=== PATIENT | male | born 1935 | race Caucasian/White ===

== ENCOUNTER 2016-10-27 08:57 | Observation (INO) ==
[2016-10-27] MEDS ORDERED: 0.9 % Sodium Chloride 500 ML IVC ONE (09:04)
[2016-10-27] MEDS ORDERED: Aspirin 81 MG TAB.CHEW PO ONE (09:04)
[2016-10-27] MEDS: Nitroglycerin 0.4 MG TAB.SUBL SL ONE ×2 (09:11→10:09)
--- NOTE | 2016-10-27 09:12 | Emergency Department Note ---
Disposition Clinical Impression: Chest pain Disposition: Admitted As Inpatient Condition: Fair Referrals: NO,PCP [Non-Partnered Physician] - Forms: ED Satisfaction Letter Time of Disposition: 11:16 Chest Pain HPI - General Chief Complaint: ED Chest Pain Stated Complaint: Chest Pain Time Seen by Provider: 10/27/16 09:04 Source: patient, family Mode of arrival: wheelchair Limitations: no limitations Vital Signs Reviewed: Yes Nursing Notes Reviewed: Yes - History of Present Illness HPI Narrative: Patient presents to the ED with the chief complaint of chest pain. Patient states that he has had multiple CABG surgeries, with his last in 2014. He is also had stents and takes aspirin and Plavix daily. His states that she is very concerned because this morning the patient became diaphoretic and slightly nauseated and was complaining of left-sided chest pain that was radiating into her shoulder and down his arm. She states that he finally told her today that he has been having this pain off and on for the last 3 days. Patient states that it started in his left neck and his left trapezius and in his left shoulder. He states that this was his anginal equivalent to his second heart attack. He states that it went away on its own, so he did not think anything of it. He woke up this morning and felt very ill and decided that it was time to come to the hospital. He has no history of DVT or PE. 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 Otherwise, he denies any fever, chills, abdominal pain, vomiting, diarrhea, cough. Severity scale (1-10): 6 - Related Data Home Medications Medication Instructions Recorded Confirmed Aspirin 81 mg PO DAILY 04/24/16 04/24/16 Clopidogrel [Plavix] 75 mg PO DAILY 04/24/16 04/24/16 Cyanocobalamin (B-12) [Vitamin B12] 1,000 mcg SQ QMONTH 04/24/16 04/24/16 Fluticasone/Salmeterol [Advair 1 puff IH DAILY 04/24/16 04/24/16 100-50 Diskus] Glucosamine Sulfate Dipot Chlr 500 mg PO DAILY 04/24/16 04/24/16 [Glucosamine] Levothyroxine Sodium [Synthroid] 100 mg PO DAILY 04/24/16 04/24/16 Montelukast [Singulair] 10 mg PO DAILY 04/24/16 04/24/16 Nitroglycerin [Nitrostat] 0.4 mg SL Q5M PRN 04/24/16 04/24/16 Pravastatin Sodium 40 mg PO DAILY 04/24/16 04/24/16 Previous Rx's Medication Instructions Recorded Acetaminophen [Tylenol] 650 mg PO Q6HR PRN #20 tablet 04/27/16 Cephalexin [Keflex] 500 mg PO QID 4 Days 04/27/16 Tamsulosin [Flomax] 0.4 mg PO DAILY 14 Days 04/27/16 Allergies Allergy/AdvReac Type Severity Reaction Status Date / Time rosuvastatin [From Crestor] Allergy Seizure Verified 04/24/16 12:36 All systems ED: reviewed and negative except as stated. Constitutional: Reports: other (Diaphoresis) Cardiovascular: Reports: chest pain, dyspnea on exertion, edema Gastrointestinal: Reports: nausea Musculoskeletal: Reports: as per HPI, neck pain Neurological: Reports: headache (States left-sided due to his neck pain) Chest Pain PMH - Past Medical History Medical history: Reports: myocardial infarction Psychiatric history: Reports: no psych history - Social History Smoking Status: Never smoker Alcohol use: Reports: none Drug use: Reports: none Physical Exam - General Limitations: no limitations General appearance: alert, in no apparent distress - Head Head exam: atraumatic, normocephalic, normal inspection - Eye Eye exam: Present: normal appearance, PERRL, EOMI - ENT ENT exam: normal exam, normal oropharynx, mucous membranes moist - Neck Neck exam: Present: full ROM, tenderness (Has reproducible tenderness in his left paracervical musculature.). Absent: meningismus - Chest Chest inspection: Present: normal inspection, symmetric chest wall rise, other ( Previous open chest scar ) - Respiratory Respiratory exam: Present: normal lung sounds bilaterally. Absent: respiratory distress - Cardiovascular Cardiovascular exam: Present: regular rate, normal rhythm, normal heart sounds - Abdominal Exam Abdominal exam: Present: soft, Non-Tender. Absent: tenderness, distention, guarding, rebound, rigidity - Extremities Exam Extremities exam: Present: pedal edema (Patient has mild 1+ pitting edema bilaterally. His extremities are cool and pale, but states this is his baseline since the vein harvesting ) - Expanded Lower Extremity Exam Hip/Pelvis exam: Present: pelvis stable - Neurological Exam Neurological exam: Present: alert, oriented X3, CN II-XII intact, other ( Patient complains of some subjective weakness in his left upper extremity, but his strength is normal. His gait is also normal. He is able to ambulate to the bed with no assistance. ) - Psychiatric Psychiatric exam: Present: normal affect, normal mood - Skin Skin exam: Present: warm, dry, intact, normal color Course - Reevaluation(s) Reevaluation #1: Patient's CT scans were normal. His chest pain did slightly improve with nitroglycerin. The patient seemed to think the most of this is coming from a shoulder but his is concerned that this was the same way he presented last time for his heart. We did discuss how the patient felt and he states that he would feel more comfortable in the hospital for a period of observation. Vital Signs Temperature 98.1 F 10/27/16 09:01 Pulse Rate 63 10/27/16 09:01 Respiratory Rate 18 10/27/16 09:01 Blood Pressure 122/58 10/27/16 09:01 O2 Sat by Pulse Oximetry 97 10/27/16 09:01 Temperature 98.1 F 10/27/16 09:01 Pulse Rate 60 10/27/16 11:07 Respiratory Rate 18 10/27/16 11:07 Blood Pressure 100/59 10/27/16 11:07 O2 Sat by Pulse Oximetry 99 10/27/16 11:07 Oxygen Delivery Oxygen Delivery Nasal Cannula Chest Pain - Medical Records Medical records reviewed: Yes I reviewed the patient's medical records. - Lab Data Lab results reviewed: Yes I reviewed the patient's lab results. Result diagrams: 10/27/16 09:14 10/27/16 09:14 Lab Results 10/27/16 10/27/16 10/27/16 Range/Units 09:14 09:14 09:14 WBC 3.4 L (4.3-11.1) K/mcL RBC 4.61 (4.19-5.50) M/mcL Hgb 13.1 (12.9-16.9) g/dL Hct 40.2 (37.5-50.1) % MCV 87.2 (83.0-100.0) fL MCH 28.4 (28.0-33.3) pg MCHC 32.6 (31.6-35.5) g/dL RDW 16.5 H (11.5-14.5) % Plt Count 203 (140-400) K/mcL MPV 10.1 (9.4-12.4) fL Immature Gran % 0.9 (0-4) % Seg Neutrophils % 43.1 % Lymphocytes % 29.4 % Monocytes % 24.8 % Eosinophils % 1.2 % Basophils % 0.6 % Neutrophils # 1.5 L (1.6-8.9) K/mcL Lymphocytes # 1.0 (0.6-4.6) K/mcL Monocytes # 0.8 (0.0-1.3) K/mcL Eosinophils # 0.0 (0.0-0.6) K/mcL Basophils # 0.0 (0.0-0.2) K/mcL Platelet Estimate Normal (Normal) Immature Plt Fraction 7.1 H (1.1-6.1) % Anisocytosis 1+ A (Not Present) PT 12.3 H (9.4-12.1) Seconds INR 1.1 APTT 31.5 (26.0-36.0) Seconds Sodium (136-145) mEq/L Potassium (3.5-4.5) mEq/L Chloride (98-109) mEq/L Carbon Dioxide (19-29) mEq/L BUN (8-26) mg/dL Creatinine (0.72-1.25) mg/dL Est GFR ( Amer) (> 60) Est GFR (Non-Af Amer) (> 60) BUN/Creatinine Ratio (6-26) Glucose (70-99) mg/dL Calculated Osmolality (280-300) Calcium (8.6-10.8) mg/dL Troponin I (0-0.03) ng/mL B-Natriuretic Peptide 41 (0-100) pg/mL 10/27/16 10/27/16 Range/Units 09:14 09:14 WBC (4.3-11.1) K/mcL RBC (4.19-5.50) M/mcL Hgb (12.9-16.9) g/dL Hct (37.5-50.1) % MCV (83.0-100.0) fL MCH (28.0-33.3) pg MCHC (31.6-35.5) g/dL RDW (11.5-14.5) % Plt Count (140-400) K/mcL MPV (9.4-12.4) fL Immature Gran % (0-4) % Seg Neutrophils % % Lymphocytes % % Monocytes % % Eosinophils % % Basophils % % Neutrophils # (1.6-8.9) K/mcL Lymphocytes # (0.6-4.6) K/mcL Monocytes # (0.0-1.3) K/mcL Eosinophils # (0.0-0.6) K/mcL Basophils # (0.0-0.2) K/mcL Platelet Estimate (Normal) Immature Plt Fraction (1.1-6.1) % Anisocytosis (Not Present) PT (9.4-12.1) Seconds INR APTT (26.0-36.0) Seconds Sodium 142 (136-145) mEq/L Potassium 3.9 (3.5-4.5) mEq/L Chloride 106 (98-109) mEq/L Carbon Dioxide 29 (19-29) mEq/L BUN 20 (8-26) mg/dL Creatinine 0.77 (0.72-1.25) mg/dL Est GFR ( Amer) > 60 (> 60) Est GFR (Non-Af Amer) > 60 (> 60) BUN/Creatinine Ratio 26 (6-26) Glucose 107 H (70-99) mg/dL Calculated Osmolality 297 (280-300) Calcium 9.7 (8.6-10.8) mg/dL Troponin I 0.00 (0-0.03) ng/mL B-Natriuretic Peptide (0-100) pg/mL - Radiology Data Radiology results reviewed: Yes I reviewed the patient's radiology results. - EKG Data EKG attestation: Yes I reviewed and interpreted this EKG. EKG results narrative: Sinus rhythm , rate 62, AL interval 153, QRS 101, QTc 395, normal axis, nonspecific ST-T wave changes inferiorly, no previous available at this time, otherwise no acute changes Heart Score - Score History: Slightly Suspicious EKG: Non Specific repolarisation Disturbance Age: Greater than 65 Risk Factors: Equal/Greater than 3 risk factor or history of atherosclerotic disease Troponin: Less than normal limit HEART Score Total: 5 S.B.A.R. - S.B.A.R. Situation: Demographics, MOA Background: Presenting Complaint, Relevant PMH, Meds, & Allergies Assessment: Vital Signs, Course and respsone to treatment, Exam Concerns, Patient/Family Expectation, Pertinant Lab Results, Outstanding Labs Recommendation: Recommendation based on pending studies, treatments, or consults Ishaan Report Given to: Dr. Azevedo for admission Ishaan Repor Time: 11:16 Attestation Statement - Attestation Attestation: Patient was seen with resident physician. I reviewed the history, physical, assessment and plan, and agree with the findings. I also personally evaluated this patient and had [id number] time with this patient. 81-year-old male presents to the emergency Department chief complaint of chest and neck pain. Patient states that he has had bypass surgery and multiple stenting in the past. He says this is somewhat of an anginal equivalent insofar as he has had a sensation that his heart is beating harder than usual, he has some shortness of breath, and he has some discomfort that radiates into his neck and into his left arm. All of these at various times have been anginal covens for him in the past. He said the episodes come and go have been getting progressively worse for the last 24-48 hours which ultimately prompted his visit. He also states that he had some nausea and diaphoresis earlier this morning. He denies fevers or chills. On examination ENT is unremarkable. Vital signs are stable, heart and lungs are both normal. Abdomen is soft and nontender. Extremities unremarkable. Neurologically patient is intact. We will did do a cardiac workup, and likely admitted to the hospital for additional evaluation and treatment. Patient was given nitroglycerin. Patient's EKG shows no acute ischemic changes. I agree with resident physician assessment and plan.
[2016-10-27 09:19] LABS: Basophils % 0.6 %; Eosinophils % 1.2 %; Hematocrit 40.2 % (37.5-50.1); Hemoglobin 13.1 g/dL (12.9-16.9); Immature Granulocytes % 0.9 % (0-4); Immature Platelets 7.1 % (1.1-6.1); Lymphocytes % 29.4 %; Mean Corpuscular HGB Conc 32.6 g/dL (31.6-35.5); Mean Corpuscular Hemoglobin 28.4 pg (28.0-33.3); Mean Corpuscular Volume 87.2 fL (83.0-100.0); Mean Platelet Volume 10.1 fL (9.4-12.4); Monocytes % 24.8 %; Neutrophils # 1.5 K/mcL (1.6-8.9); Platelet Count 203 K/mcL (140-400); Red Blood Count 4.61 M/mcL (4.19-5.50); Red Cell Distribution Width 16.5 % (11.5-14.5); Segmented Neutrophils % 43.1 %
[2016-10-27 09:22] LABS: Monocytes # 0.8 K/mcL (0.0-1.3)
[2016-10-27 09:23] LABS: INR 1.1; Prothrombin Time 12.3 Seconds (9.4-12.1)
[2016-10-27 09:25] LABS: Activated Partial Thrombo Time 31.5 Seconds (26.0-36.0)
[2016-10-27 09:30] LABS: BUN/Creatinine Ratio 26 (6-26); Blood Urea Nitrogen 20 mg/dL (8-26); Calcium 9.7 mg/dL (8.6-10.8); Carbon Dioxide 29 mEq/L (19-29); Chloride 106 mEq/L (98-109); Glucose 107 mg/dL (70-99); Osmolality,Calculated 297 (280-300); Potassium 3.9 mEq/L (3.5-4.5); Sodium 142 mEq/L (136-145); eGFR For African Americans > 60 (> 60); eGFR For Non-African Americans > 60 (> 60)
[2016-10-27 09:51] LABS: Platelet Estimate Normal (Normal)
[2016-10-27 09:53] LABS: Anisocytosis 1+ (Not Present)
[2016-10-27] MEDS ORDERED: *HR* HYDROmorphone (PF) 1 MG/ML SYRINGE IVP ONE (10:38)
[2016-10-27] MEDS ORDERED: Acetaminophen 325 MG TABLET PO PRN (11:23)
[2016-10-27] MEDS ORDERED: Naloxone 0.4 MG/ML INJ IVP PRN (11:23)
[2016-10-27] MEDS ORDERED: Ondansetron 4 MG/2 ML VIAL IVP PRN (11:23)
[2016-10-27] MEDS ORDERED: Nitroglycerin 0.4 MG TAB.SUBL SL PRN (11:26)
--- NOTE | 2016-10-27 11:39 | Event Note ---
Date of Encounter: 10/27/16 Time of Encounter: 11:37 1. chest pain with hx of CABG stress test in the morning continue ASA and Plavix 2. Bradycardia no betablockers 3. left side numbness may order MRI of the brain and neck 4. Parkinson stable admit for observation time spent 40 min Note to follow by NIKITA Barnes
--- NOTE | 2016-10-27 12:04 | Internal Med History&Physical ---
Date of Encounter: 10/27/16 Time of Encounter: 11:52 Assessment and Plan (1) Chest pain Current visit: Yes Status: Acute 1 patient's been expressing increasing shortness of breath diaphoresis and rapid heartbeat which she states was anginal equivalent to his last heart attack. first cardiac troponins were negative. Patient has extensive cardiac history with a CABG in 1994 and redo 2005 cardiac catheter 2012 showed severe three-vessel coronary disease Continue cycle troponins 2 continuous cardiac monitoring 3 nitroglycerin as needed for chest pain 4 patient had a cardiac echo April 2016 which did show EF of 60% 5 continued with aspirin and statin patient has bradycardia no beta blockers at this time 6 we will make patient nothing by mouth after midnight for pharm stress in am 7 oxygen as needed to maintain SPO2 greater than 92% Qualifiers: Chest pain type: other chest pain Qualified Code(s): R07.89 - Other chest pain; R07.8 - Other chest pain (2) Hypothyroid Current visit: Yes Status: Acute 1check tsh 2 synthroid Qualifiers: Hypothyroidism type: unspecified Qualified Code(s): E03.9 - Hypothyroidism , unspecified (3) Parkinson disease Current visit: No Status: Chronic 1 stable (4) CAD (coronary artery disease), [place] coronary artery Current visit: No Status: Chronic 1 continue with aspirin and Plavix statin 2 continues cardiac monitoring 3 cardiac diet Qualifiers: [place] vs. transplanted heart: [place] heart Associated angina: with unspecified angina Qualified Code(s): I25.119 - Atherosclerotic heart disease of [place] coronary artery with unspecified angina pectoris (5) Fall Current visit: Yes Status: Acute 1 patient had a fall from standing approximately 1 week ago. Complaining of left shoulder pain and neck pain and headaches. CT of head and shoulder are negative for any fractures or intracranial bleeding. We will obtain MRI of his head as well as neck 2 place on fall precautions Qualifiers: Encounter type: initial encounter Qualified Code(s): W19.XXXA - Unspecified fall, initial encounter (6) DVT prophylaxis Current visit: Yes Status: Acute 1[facility] Internal Medicine - H&P: HPI Chief complaint: SOB,CP Admitted From: Emergency Dept Plans for Post Hospital Care: Home History of present illness: Mr. Kinsey is a 81 year old male with a past medical hx of CAD with CABG 1994 redo 2004 hypothyroid chronic bradycardia hyperlipidemia hypertension Parkinson' s disease. According to patient he states he had a fall approximately 1 week ago, falling onto his left side he has been experiencing some left shoulder plain as well as left-sided neck pain. For past 2 days patient has been experiencing shortness of breath, felt as if his heart was racing and diaphoretic while going up and down stairs. He states that was his anginal equivalent to a second heart attack. This resolved on its own however he did have a second episode this morning which she became concerned and came to the ER for evaluation. He denies any past history of DVT or PE. He does have chronic edema in his lower extremities secondary to previous vein harvesting. He denies any fevers chills vomiting diarrhea or cough. He does complain of left shoulder, neck pain and headache. According ER records lab work was unremarkable troponin 0.0. CT of shoulder and head were negative for any fractures or intracranial abnormalities. Chest x-ray no acute process EKG with no ST-T wave abnormalities he has been admitted for further workup and evaluation. Presently patient denies any chest pain or shortness of breath however he does complain of headache and left neck pain. Presently sinus bradycardia on the monitor heart sounds S1-S2 with no rubs clicks gallops murmurs noted. Lung sounds are clear throughout. I reviewed this case with Dr. Azevedo who agrees with plan. Past Med Surg Social Fam HX - Past Medical History Medical history: myocardial infarction Psychiatric history: no psych history - Social History Smoking Status: Never smoker Smokeless Tobacco Status: No Alcohol use: none Drug use: none - Family History Mother Hx Family Cardiac Disorders: Yes (CABG) Internal Medicine - H&P: Meds Aspirin 81 mg PO DAILY 04/24/16 [History] Clopidogrel [Plavix] 75 mg PO DAILY 04/24/16 [History] Cyanocobalamin (B-12) [Vitamin B12] 1,000 mcg SQ QMONTH 04/24/16 [History] Fluticasone/Salmeterol [Advair 100-50 Diskus] 1 puff IH DAILY 04/24/16 [History] Glucosamine Sulfate Dipot Chlr [Glucosamine] 500 mg PO DAILY 04/24/16 [History] Montelukast [Singulair] 10 mg PO DAILY 04/24/16 [History] Nitroglycerin [Nitrostat] 0.4 mg SL Q5M PRN 04/24/16 [History] Pravastatin Sodium 40 mg PO DAILY 04/24/16 [History] Acetaminophen [Tylenol] 650 mg PO Q6HR PRN #20 tablet 04/27/16 [Rx] Tamsulosin [Flomax] 0.4 mg PO DAILY 14 Days 04/27/16 [Rx] Levothyroxine [Synthroid] 88 mcg PO DAILY 10/27/16 [History] Allergies onabotulinumtoxinA [From Botox] Allergy (Verified 10/27/16 11:23) Weakness rosuvastatin [From Crestor] Allergy (Verified 10/27/16 11:23) Weakness Patient experienced weakness to the point of being hopsitalized- All Systems PM: A 10-system review of systems was performed and is negative for pertinent findings except as documented above in the HPI. - Constitutional Constitutional: falls - Cardiovascular Cardiovascular ROS IM: dyspnea, dyspnea on exertion, edema - Respiratory Respiratory: dyspnea on exertion - Gastrointestinal Gastrointestinal: no abdominal pain, no diarrhea, no hematemesis, no hematochezia, no melena, no nausea, no vomiting - Musculoskeletal Musculoskeletal ROS IM: arthralgias, neck pain - Integumentary Integumentary IM: no rash, no unusual bruising - Neurological Neurological ROS: headache(s), no confusion, no convulsions, no focal weakness, no numbness, no tingling, no tremor(s) - Hematologic/Lymphatic Hematologic/Lymphatic: no easy bruising - Constitutional Vitals: Temp Pulse Resp BP Pulse Ox 98.1 F 60 18 100/59 99 10/27/16 09:01 10/27/16 11:07 10/27/16 11:26 10/27/16 11:26 10/27/16 11:07 General appearance: Present: A&O X 3, answers questions appropriately - Head Head exam: Present: atraumatic, normocephalic - Eye Eye exam: Present: PERRL, conjuntiva pink, sclera anicteric Pupils: Present: PERRL - Neck Neck exam general surgery: Present: supple, trachea midline. Absent: lymphadenopathy - Respiratory Respiratory exam: Present: CTAB. Absent: accessory muscle use, rales, rhonchi, wheezes - Cardiovascular Cardiovascular exam: Present: RRR, +S1, +S2. Absent: diastolic murmur, gallop, rubs, systolic murmur - GI/Abdominal GI/Abdominal exam: Present: normal bowel sounds, soft, no peritoneal signs. Absent: distended, tenderness - Extremities Exam Extremities exam: Present: pedal edema, warm, radial pulses palpable and symetrical. Absent: calf tenderness, cyanotic - Neurological Exam Neurological exam: Present: CN II-XII intact, oriented X3, no focal deficits. Absent: pronater drift, facial droop, speech deficit - Skin Skin exam: Present: dry, intact Internal Med - H&P Results - Labs CBC & Chem 7: 10/27/16 09:14 10/27/16 09:14 - EKG Data EKG shows normal: sinus rhythm - Diagnostic Studies Chest x-ray Additional comments: Chest X-Ray 10/27/16 09:04 IMPRESSION: No acute cardiopulmonary disease. D/ /27/2016 10:12:40 Ben Dotson MD / inés Interpreting Provider: Ben Dotson MD Head CT 10/27/16 09:34 IMPRESSION: No acute intracranial abnormality. D/ / 10/27/2016 10:31:22 Ben Dotson MD / inés Interpreting Provider: Ben Dotson MD Cervical Spine CT 10/27/16 09:42 IMPRESSION: No acute abnormality of the cervical spine. D/ / 10/27/2016 10:35:52 Ben Dotson MD / inés Interpreting Provider: Ben Dotson MD Shoulder CT 10/27/16 09:42 IMPRESSION: No acute osseous injury of the left shoulder. Arthritic changes are present. D/ / 10/27/2016 10:37:23 Ben Dotson MD / inés Interpreting Provider: Ben Dotson MD
[2016-10-27] MEDS: *HR* HYDROcodone/Acet 5/325 mg TABLET PO PRN (18:20)
[2016-10-27 20:51] LABS: Bilirubin,Urine Negative (Negative); Blood,Urine Negative (Negative); Clarity,Urine Clear (Clear); Color,Urine Yellow (Yellow); Glucose,Urine (UA) 100 mg/dL (Normal); Ketones,Urine Negative (Negative); Leukocyte Esterase,Urine Negative (Negative); Nitrite,Urine Negative (Negative); PH,Urine 5.5 pH Units (5.0-8.0); Protein,Urine Negative (Neg-Trace); Specific Gravity,Urine > 1.030 (1.010-1.025); Urobilinogen,Urine Normal (Normal)
[2016-10-28] MEDS: *HR* HYDROcodone/Acet 5/325 mg TABLET PO PRN ×3 (00:54→19:47)
[2016-10-28 04:01] LABS: Basophils % 0.6 %; Eosinophils # 0.1 K/mcL (0.0-0.6); Eosinophils % 1.8 %; Hematocrit 35.4 % (37.5-50.1); Immature Granulocytes % 0.6 % (0-4); Lymphocytes # 1.2 K/mcL (0.6-4.6); Lymphocytes % 36.5 %; Mean Corpuscular HGB Conc 32.2 g/dL (31.6-35.5); Mean Corpuscular Hemoglobin 28.6 pg (28.0-33.3); Mean Corpuscular Volume 88.9 fL (83.0-100.0); Mean Platelet Volume 10.4 fL (9.4-12.4); Monocytes # 0.9 K/mcL (0.0-1.3); Monocytes % 26.2 %; Neutrophils # 1.2 K/mcL (1.6-8.9); Platelet Count 172 K/mcL (140-400); Red Blood Count 3.98 M/mcL (4.19-5.50); Red Cell Distribution Width 16.3 % (11.5-14.5); Segmented Neutrophils % 34.3 %
[2016-10-28 04:03] LABS: Hemoglobin 11.4 g/dL (12.9-16.9)
[2016-10-28 04:18] LABS: Anisocytosis 1+ (Not Present)
[2016-10-28 04:19] LABS: BUN/Creatinine Ratio 27 (6-26); Blood Urea Nitrogen 20 mg/dL (8-26); Calcium 8.7 mg/dL (8.6-10.8); Carbon Dioxide 28 mEq/L (19-29); Chloride 107 mEq/L (98-109); Chol/HDL Ratio 4.8 (0-4.9); Cholesterol 124 mg/dL (< 200); Glucose 108 mg/dL (70-99); HDL Cholesterol 26 mg/dL (40-59); LDL Cholesterol,Calculated 80 mg/dL (0-99); Osmolality,Calculated 293 (280-300); Platelet Estimate Normal (Normal); Potassium 4.2 mEq/L (3.5-4.5); Sodium 140 mEq/L (136-145); Triglycerides 90 mg/dL (< 150); eGFR For African Americans > 60 (> 60); eGFR For Non-African Americans > 60 (> 60)
[2016-10-28 04:35] LABS: Thyroid Stimulating Hormone 6.223 mcIU/mL (0.350-4.840)
[2016-10-28] MEDS ORDERED: Regadenoson 0.4 MG/5 ML SYRINGE IVP ONE (05:53)
[2016-10-28] MEDS: Aspirin 81 MG TAB.CHEW PO SCH (09:39)
[2016-10-28] MEDS: Budesonide/Formoterol 80/4.5 MDI IH SCH (10:40)
[2016-10-28 11:58] LABS: Triiodothyronine (T3) Free 2.28 pg/mL (1.71-3.71)
--- NOTE | 2016-10-28 12:08 | Internal Med Progress Note ---
Date of Encounter: 10/28/16 Time of Encounter: 11:15 - Assessment and plan (1) Shoulder pain, acute Current Visit: Yes Status: Acute Assessment and plan: Patient reports severe left shoulder pain, radiating to her left neck and inability to sleep on left side since his recent fall about one week ago. Patient reports having left shoulder repair with hardware placement and is concerned displacement of hardware. MRI left shoulder, orthopedics consult as needed. Pain control with oral Percocet and IV morphine as needed. Physical therapy. Qualifiers: Laterality: left Qualified Code(s): M25.512 - Pain in left shoulder (2) CAD (coronary artery disease) Current Visit: Yes Status: Chronic Assessment and plan: Patient reported chest pain at the time of admission. Echocardiogram from April 2016 showed preserved ejection fraction with no significant acute abnormality. Follow-up nuclear stress test. Continue aspirin, Plavix, statin; not noted to be on beta [place]an[place] likely secondary to bradycardia. Continue telemetry monitoring. Qualifiers: Coronary Disease-Associated Artery/Lesion type: bypass graft [place] vs. transplanted heart: [place] heart Associated angina: without angina Qualified Code(s): I25.810 - Atherosclerosis of coronary artery bypass graft(s) without angina pectoris (3) Bradycardia Current Visit: Yes Status: Chronic Assessment and plan: Heart rate noted to be in low 50s. Continue telemetry monitoring, continue to hold negative chronotropic agents. (4) Chest pain Current Visit: Yes Status: Acute Assessment and plan: Plan as above. Qualifiers: Chest pain type: other chest pain Qualified Code(s): R07.89 - Other chest pain; R07.8 - Other chest pain (5) Hypothyroid Current Visit: Yes Status: Chronic Assessment and plan: Noted to have slightly elevated TSH, around 6. Free T4 and free T3 noted to be within normal limits, although low normal. Patient has been educated regarding the need to separate levothyroxin pill by at least 1 hour from other pills/ food. He verbalized understanding. Continue levothyroxine. 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 Continue home medications. - Subjective Interval history: Reports persistent left shoulder pain, radiating to left neck, and he cannot sleep on his left side due to this; pain started after a fall about 1 week back ; he had repair of left shoulder by about 2 years ago and insists on receiving MRI left shoulder and d/w ; No chest pain, dyspnea; - Constitutional Vitals: Temp Pulse Resp BP Pulse Ox 97.5 F L 51 16 126/63 97 10/28/16 11:44 10/28/16 11:44 10/28/16 11:44 10/28/16 11:44 10/28/16 11:44 General appearance: Present: A&O X 3, answers questions appropriately - Respiratory Respiratory exam: Present: CTAB. Absent: accessory muscle use, rales, rhonchi, wheezes - Cardiovascular Cardiovascular exam: Present: RRR, +S1, +S2. Absent: diastolic murmur, gallop, rubs, systolic murmur - GI/Abdominal GI/Abdominal exam: Present: normal bowel sounds, soft, no peritoneal signs. Absent: distended, tenderness - Extremities Exam Extremities exam: Present: full ROM (able to do overhead abduction of left shoulder, no restriction in ROM), warm, radial pulses palpable and symetrical. Absent: calf tenderness, cyanotic, pedal edema Internal Medicine: Result - Labs CBC & Chem 7: 10/28/16 03:01 10/28/16 03:01 Labs: Short CBC 10/28/16 Range/Units 03:01 WBC 3.4 L (4.3-11.1) K/mcL Hgb 11.4 L D (12.9-16.9) g/dL Hct 35.4 L (37.5-50.1) % Plt Count 172 (140-400) K/mcL Neutrophils # 1.2 L (1.6-8.9) K/mcL BMP 10/28/16 03:01 Sodium 140 Potassium 4.2 Chloride 107 Carbon Dioxide 28 BUN 20 Creatinine 0.75 Glucose 108 H Calcium 8.7 Cardiac Enzymes 10/27/16 10/27/16 Range/Units 14:38 21:18 Troponin I 0.00 0.00 (0-0.03) ng/mL Urine 10/27/16 Range/Units 20:40 Urine Color Yellow (Yellow) Urine Clarity Clear (Clear) Urine pH 5.5 (5.0-8.0) pH Units Ur Specific [place] > 1.030 H (1.010-1.025) Urine Protein Negative (Neg-Trace) mg/dL Urine Glucose (UA) 100 H (Normal) mg/dL - ABG Interpretation ABG results: PT/INR, D-dimer PT 12.3 Seconds (9.4-12.1) H 10/27/16 09:14 - Impressions Impressions Brain MRI 10/27/16 11:48 IMPRESSION: 1. No acute intracranial abnormality. 2. Mild chronic white matter microvascular ischemic changes. D/ / Alberto Juarez MD / Alberto Juarez MD Interpreting Provider: Alberto Juarez MD Cervical Spine MRI 10/27/16 11:48 IMPRESSION: 1. No acute abnormality of the cervical spine. 2. 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 3. Multilevel neural foraminal narrowing secondary to uncovertebral and facet hypertrophy as detailed above and greatest involving the right C6 neural foramen where it is severe. D/ / Alberto Juarez MD / Alberto Juarez MD Interpreting Provider: Alberto Juarez MD - VTE Documentation of Mechanical Device: Graduated compression elastic hosiery Consult Discharge Plan - Plan Referrals: Jaguar Gamez DO [Primary Care Provider] -
--- NOTE | 2016-10-28 13:09 | Nuclear Medicine Stress Report ---
Regadenoson Nuclear Stress Name: Andres Kinsey Date of Study: 10/28/2016 Date: 1935 Ht: 73.0 in Medical Record#: [id number] Age: 81 Wt: 155.0 lb Gender: Male Order #: [id number] Location: [facility] Room: [facility] Supervising Provider: Richard Horn CNP Reading Physician: Lennie Blanc DO Ordering Physician: Josiane Palomino CNP Primary Care Physician: Cesar Gamez DO Stress Technologist: Marylin Norton RRT Metal Box Maker: Juanpablo Hardy Indications: Chest Pain Impression: Perfusion imaging was negative for ischemia or infarct. Pharmacologic ECG was negative for ischemia at the level of heart rate achieved. Gated EF = 58%. History: History of Coronary Artery Bypass Surgery Stress Test Summary: Stress Test Type: Pharmacologic Baseline Information: Initial Heart Rate: 49 Blood Pressure: 118/72 Stress Information: Test Terminated Due to (primary): As per protocol Maximum Blood Pressure: 110/70 Maximum Heart Rate: 68 Percent Maximum Heart Rate Achieved: 49 Double Product: 7480 METS Reached: 1 Symptoms: No chest symptoms Nuclear Summary: SPECT myocardial perfusion imaging using Tc99m Sestamibi given intravenously was performed at rest and following cardiac stress testing. The resting images were obtained following initial dose of 11.1 mCi. Following stress an additional dose of 35.5 mCi was given at peak exercise or 30 seconds post regadenoson infusion. Medication Given: Time Medication Dose Units Route Findings: Stress Note * Baseline ECG demonstrates sinus bradycardia. * Pharmacologic stress ECG is negative for ischemia at level of heart rate achieved. * No arrhythmias were noted during stress. * Patient had no chest pain during stress. Hemodynamic responses * Normal hemodynamic responses to pharmacologic stress. Study Quality * Study quality was fair. Gated EF % * Gated EF = 58%. Left Ventricle * The left ventricle is not dilated. NORMALS * Normal wall motion. TID * No evidence of transient ischemic dilatation. Lung Uptake * There is no evidence of increase lung uptake. PERFUSION * There is a medium sized mild intensity fixed perfusion defect involving the inferior wall. Wall motion is normal. Findings represent artifact. * Other areas demonstrate normal rest and stress perfusion. Updated by Lennie Blanc on 10/28/2016 1:01:40 PM electronically signed on 10/28/2016 1:02:39 PM with status of Final
--- NOTE | 2016-10-28 17:57 | Electrocardiograph Report ---
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
[2016-10-28] MEDS ORDERED: Patient Taking Own Medication 1 EACH PO SCH (18:00)
[2016-10-29] MEDS: Budesonide/Formoterol 80/4.5 MDI IH SCH (08:06)
[2016-10-29] MEDS: *HR* HYDROcodone/Acet 5/325 mg TABLET PO PRN (09:05)
[2016-10-29] MEDS: Aspirin 81 MG TAB.CHEW PO SCH (09:07)
--- NOTE | 2016-10-29 14:00 | Orthopedic Consult Note ---
Date of Encounter: 10/29/16 Time of Encounter: 14:00 Assessment and Plan (1) Shoulder pain, acute Status: Acute Patient has overall improved since admitted with pain medication and rest. I reviewed his MRI with him. We discussed further conservative management to include home range of motion exercises, steroid injection and follow up in the office. He currently has a follow up in approximately a month. I offered a sooner appointment, however he would like to keep his 1 month follow up. He will start home shoulder exercises. Limiting lifting per his tolerance. Follow up outpatient. Tylenol for pain relief. ICE as needed. ROM as tolerated. Qualifiers: Laterality: left Qualified Code(s): M25.512 - Pain in left shoulder (2) Fall Status: Acute Qualifiers: Encounter type: initial encounter Qualified Code(s): W19.XXXA - Unspecified fall, initial encounter History of Present Illness Chief complaint: Fall HPI: Mr. Kinsey is a 81 year old male, who had a mechanical fall onto Left shoulder outstretched on Saturday. He came to the ED for chest pain and left arm pain. He was admitted and cardiac workup completed. He states the initial pain in his left arm has subsided since the fall, and he is able to move it forward now with minimal difficulty. He has a previous rotator cuff repair with in 2013, as well as a Right TSR. Previous to this fall, he was using the arm daily without limitations. He denies N/T, radiation of pain, ecchymosis or bleeding. He denies LOC and SOB. Denies CP. MRI reviewed: Mid-substance RCT, posterior labral tear Past Med Surg Social Fam HX - Past Medical History Medical history: myocardial infarction Psychiatric history: no psych history - Social History Smoking Status: Never smoker Smokeless Tobacco Status: No Alcohol use: none Drug use: none - Family History Mother Hx Family Cardiac Disorders: Yes (CABG) Medications and Allergies Aspirin 81 mg PO DAILY 04/24/16 [History] Clopidogrel [Plavix] 75 mg PO DAILY 04/24/16 [History] Cyanocobalamin (B-12) [Vitamin B12] 1,000 mcg SQ QMONTH 04/24/16 [History] Fluticasone/Salmeterol [Advair 100-50 Diskus] 1 puff IH DAILY 04/24/16 [History] Glucosamine Sulfate Dipot Chlr [Glucosamine] 500 mg PO DAILY 04/24/16 [History] Montelukast [Singulair] 10 mg PO DAILY 04/24/16 [History] Nitroglycerin [Nitrostat] 0.4 mg SL Q5M PRN 04/24/16 [History] Pravastatin Sodium 40 mg PO DAILY 04/24/16 [History] Acetaminophen [Tylenol] 650 mg PO Q6HR PRN #20 tablet 04/27/16 [Rx] Tamsulosin [Flomax] 0.4 mg PO DAILY 14 Days 04/27/16 [Rx] Levothyroxine [Synthroid] 88 mcg PO DAILY 10/27/16 [History] Allergies onabotulinumtoxinA [From Botox] Allergy (Verified 10/27/16 11:23) Weakness rosuvastatin [From Crestor] Allergy (Verified 10/27/16 11:23) Weakness Patient experienced weakness to the point of being hopsitalized- All Systems Reviewed: A 10-system review of systems was performed and is negative for pertinent findings except as documented above in the HPI. - Constitutional Constitutional: as per HPI - Cardiovascular Cardiovascular: as per HPI - Respiratory Respiratory: as per HPI - Musculoskeletal Musculoskeletal: limited range of motion, stiffness, no abnormal gait, no joint swelling, no muscle weakness, no neck pain, no numbness, no radiating pain into limb, no tingling Physical Exam - Constitutional Vitals: Temp Pulse Resp BP Pulse Ox 97.3 F L 65 16 107/53 96 10/29/16 11:00 10/29/16 11:00 10/29/16 11:00 10/29/16 11:00 10/29/16 11:00 - Shoulder left Appearance shoulder: normal Effusion grade shoulder exam: No Tenderness w/ palpation shoulder: anterior ROM: abduction: normal ROM: forward flexion: normal ROM: extension: abnormal ROM: adduction: abnormal ROM: internal rotation: abnormal ROM: external rotation: abnormal Strength: internal rotation: Weak Strength: external rotation: Weak Results - Labs Result Diagrams: 10/28/16 03:01 10/28/16 03:01 Labs: Abnormal lab results WBC 3.4 K/mcL (4.3-11.1) L 10/28/16 03:01 RBC 3.98 M/mcL (4.19-5.50) L 10/28/16 03:01 Hgb 11.4 g/dL (12.9-16.9) L D 10/28/16 03:01 Hct 35.4 % (37.5-50.1) L 10/28/16 03:01 RDW 16.3 % (11.5-14.5) H 10/28/16 03:01 Neutrophils # 1.2 K/mcL (1.6-8.9) L 10/28/16 03:01 Immature Plt Fraction 7.1 % (1.1-6.1) H 10/27/16 09:14 Anisocytosis 1+ (Not Present) A 10/28/16 03:01 PT 12.3 Seconds (9.4-12.1) H 10/27/16 09:14 BUN/Creatinine Ratio 27 (6-26) H 10/28/16 03:01 Glucose 108 mg/dL (70-99) H 10/28/16 03:01 HDL Cholesterol 26 mg/dL (40-59) L 10/28/16 03:01 TSH 6.223 mcIU/mL (0.350-4.840) H 10/28/16 03:01 Ur Specific [place] > 1.030 (1.010-1.025) H 10/27/16 20:40 Urine Glucose (UA) 100 mg/dL (Normal) H 10/27/16 20:40 All other labs normal. - Diagnostic results Shoulder MRI: report reviewed, image reviewed Consult Discharge Plan - Plan Instructions: Hypothyroidism (DC), Fall Prevention (DC) Additional Instructions: F/up with Orthopedic surgery in 2-3 weeks Referrals: Jin Pichardo MD [Partnered Physician] - (We have requested an appointment with Dr Pichardo. The office will call you at home with an appointment date and time. ) Jaguar Gamez DO [Primary Care Provider] - 11/05/16 9:30 am
--- NOTE | 2016-10-29 14:14 | Discharge Summary ---
Date of Encounter: 10/29/16 Time of Encounter: 11:45 - Discharge Diagnosis (1) Shoulder pain, acute Priority: Primary Status: Acute Qualifiers: Laterality: left Qualified Code(s): M25.512 - Pain in left shoulder (2) CAD (coronary artery disease) Priority: Secondary Status: Chronic Qualifiers: Coronary Disease-Associated Artery/Lesion type: bypass graft [place] vs. transplanted heart: redding heart Associated angina: without angina Qualified Code(s): I25.810 - Atherosclerosis of coronary artery bypass graft(s) without angina pectoris (3) Bradycardia Priority: Secondary Status: Chronic (4) Chest pain Priority: Primary Status: Acute Qualifiers: Chest pain type: other chest pain Qualified Code(s): R07.89 - Other chest pain; R07.8 - Other chest pain (5) Hypothyroid Priority: Secondary Status: Chronic Qualifiers: Hypothyroidism type: unspecified Qualified Code(s): E03.9 - Hypothyroidism , unspecified (6) Parkinson disease Priority: Secondary Status: Chronic - Discharge Medications Home Medications: Aspirin 81 mg PO DAILY 04/24/16 [History] Clopidogrel [Plavix] 75 mg PO DAILY 04/24/16 [History] Cyanocobalamin (B-12) [Vitamin B12] 1,000 mcg SQ QMONTH 04/24/16 [History] Fluticasone/Salmeterol [Advair 100-50 Diskus] 1 puff IH DAILY 04/24/16 [History] Glucosamine Sulfate Dipot Chlr [Glucosamine] 500 mg PO DAILY 04/24/16 [History] Montelukast [Singulair] 10 mg PO DAILY 04/24/16 [History] Nitroglycerin [Nitrostat] 0.4 mg SL Q5M PRN 04/24/16 [History] Pravastatin Sodium 40 mg PO DAILY 04/24/16 [History] Acetaminophen [Tylenol] 650 mg PO Q6HR PRN #20 tablet 04/27/16 [Rx] Tamsulosin [Flomax] 0.4 mg PO DAILY 14 Days 04/27/16 [Rx] Levothyroxine [Synthroid] 88 mcg PO DAILY 10/27/16 [History] Allergies/Adverse Reactions: Allergies onabotulinumtoxinA [From Botox] Allergy (Verified 10/27/16 11:23) Weakness rosuvastatin [From Crestor] Allergy (Verified 10/27/16 11:23) Weakness Patient experienced weakness to the point of being hopsitalized- Procedures/tests Complete & Pending: Procedures Performed prior 72 hours Category Date Time Status NM richard perf SPECT multi [NM] Routine Exams 10/27/16 11:51 Taken MR cervical spine wo con [MR] Routine MRI 10/27/16 11:48 Completed MR head/brain wo con [MR] Routine MRI 10/27/16 11:48 Completed MR shoulder LT wo con [MR] Routine MRI 10/29/16 08:25 Completed SP pharm nuclear stress Routine Y 10/27/16 11:50 Completed Date of admission: 10/27/16 11:19 Primary care physician: Jaguar Gamez, Discharging clinician: Anna Degroot Anticipated date of discharge: 10/29/16 - Patient Status Disposition: Home, Self-Care Condition: Fair Functional capacity at discharge: independent ambulation Overall status at discharge: patient is progressing back to baseline - Discharge Instructions Instructions: Hypothyroidism (DC), Fall Prevention (DC) Follow Up With: Jin Pichardo MD [Partnered Physician] - (We have requested an appointment with Dr Pichardo. The office will call you at home with an appointment date and time. ) Jaguar Gamez DO [Primary Care Provider] - 11/05/16 9:30 am Additional Instructions: F/up with Orthopedic surgery in 2-3 weeks - Diet and Activity Activity: resume usual activities as tolerated Diet: low fat, low cholesterol, low salt diet Hospital course: Mr. Kinsey is a 81 year old male with the above medical problems who was admitted with presumed chest pain, left-sided shoulder and neck pain. Initial labs, chest x-ray and EKG done in the emergency room showed no acute abnormality. Telemetry remained uneventful and serial troponins were negative for ACS. Upon my evaluation the next day, patient claimed that he sustained a fall about a week ago and he came in mainly because of left shoulder and neck pain and his chest pain has resolved. Patient underwent nuclear stress test which was negative for ischemia. Recent echocardiogram in April 2016 showed preserved ejection fraction. He received CT head, CT cervical spine and CT left shoulder which showed no acute abnormality. He continued to have left shoulder pain and reported tendon repairs in his left shoulder about 2 years ago and insisted on MRI of left shoulder for possible torn tendons and repeat surgery. MRI of left shoulder was done which showed full-thickness tear in left supraspinatus tendon. Orthopedics was consulted and patient is cleared for discharge with outpatient follow-up. He is otherwise medically stable. - Time Spent with Patient Total time spent providing and/or coordinating discharge services: Greater than 30 minutes (45 min) - Constitutional Vitals: Temp Pulse Resp BP Pulse Ox 97.3 F L 65 16 107/53 96 10/29/16 11:00 10/29/16 11:00 10/29/16 11:00 10/29/16 11:00 10/29/16 11:00 General appearance: Present: A&O X 3, answers questions appropriately - Respiratory Respiratory exam: Present: CTAB. Absent: accessory muscle use, rales, rhonchi, wheezes - Cardiovascular Cardiovascular exam: Present: RRR, +S1, +S2. Absent: diastolic murmur, gallop, rubs, systolic murmur - VTE Documentation of Mechanical Device: Graduated compression elastic hosiery
[2016-10-29 14:56] VITALS: BP 92/53
== END 2016-10-29 15:40 | disposition home or self-care (01) ==
LOC: EMEROO 08:57 → 3BNU 08:57 → SUATTDRO 11:19 → 3BNU 11:44
PROVIDERS: ADMIT Nurse Practitioner Acute Care; ATTEND Internal Medicine

== ENCOUNTER 2019-01-29 14:09 | Inpatient (IN) ==
--- NOTE | 2019-01-29 15:13 | Emergency Department Note ---
Disposition Clinical Impression: Lower extremity weakness Qualifiers: Laterality: bilateral Qualified Code(s): R29.898 - Other symptoms and signs involving the musculoskeletal system Disposition: Admitted As Inpatient Condition: Fair Time of Disposition: 19:09 General Adult HPI - General Chief complaint: ED Weakness Stated complaint: General weakness Time Seen by Provider: 01/29/19 14:10 Source: patient, EMS Limitations: no limitations Nursing Notes Reviewed: Yes Vital Signs Reviewed: Yes - History of Present Illness HPI Narrative: 83-year-old male presents today with concerns of bilateral lower extremity weakness worsening since 3 days ago. Past medical history significant for Parkinson's disease, untreated and does not follow with neurology. He does report recent medication changes of increased L-thyroxine. He reports multiple falls over the last week. On Saturday, he fell and was not found until 90 minutes later by family. He denies any head trauma or loss of consciousness. Since then, he has fallen twice more and denies any head trauma or loss of consciousness. He denies any headaches, dizziness, lightheadedness, confusion prior to falls. Denies any seizure-like activity or tongue biting. He explains that falls are due to lower extremities weakness and loss of balance. He does not use a walker or cane. Denies any back pain, saddle anesthesia, urinary or bowel incontinence. No CP, SOB, cough. Pt Subjective Complaint: leg weakness Pain Scale: 0 - Related Data Home Medications Medication Instructions Recorded Confirmed Aspirin 81 mg PO DAILY 04/24/16 01/29/19 Fluticasone/Salmeterol [Advair 1 puff IH DAILY 04/24/16 01/29/19 100-50 Diskus] Montelukast [Singulair] 10 mg PO DAILY 04/24/16 01/29/19 Nitroglycerin [Nitrostat] 0.4 mg SL Q5M PRN 04/24/16 01/29/19 Cyanocobalamin (Vitamin B-12) 1,000 mcg PO DAILY 01/29/19 01/29/19 [Vitamin B12] Levothyroxine [Synthroid] 125 mcg PO DAILY 01/29/19 01/29/19 Pravastatin Sodium [Pravachol] 40 mg PO DAILY 01/29/19 01/29/19 Allergies Allergy/AdvReac Type Severity Reaction Status Date / Time onabotulinumtoxinA Allergy Weakness Verified 10/27/16 11:23 [From Botox] rosuvastatin [From Crestor] Allergy Weakness Verified 10/27/16 11:23 Review of Systems: As Per HPI Constitutional: Denies: fever, chills Eyes: Denies: eye pain ENT ED: Denies: ear pain Cardiovascular: Denies: chest pain, palpitations, syncope Respiratory: Denies: cough, dyspnea Gastrointestinal: Denies: abdominal pain, nausea, vomiting, diarrhea Genitourinary: Denies: urgency, dysuria, frequency Musculoskeletal: Denies: back pain Integumentary: Denies: rash, abrasion Neurological: Reports: weakness, numbness. Denies: headache Psychiatric: Denies: anxiety, depression Past Medical History - Past Medical History Attestation: Yes The following information was validated with the patient. Medical history: Reports: coronary artery disease, myocardial infarction Psychiatric history: Reports: no psych history - Social History Smoking Status: Never smoker Smokeless Tobacco Status: No Alcohol use: Reports: none Drug use: Reports: none Physical Exam - General Limitations: no limitations General appearance: alert, in no apparent distress - Head Head exam: atraumatic, normocephalic - Eye Eye exam: Present: normal appearance, PERRL, EOMI - Expanded Eye Exam Pupils: Left: reactive - ENT ENT exam: normal exam, normal oropharynx, mucous membranes moist - Expanded ENT Exam External ear exam: Present: normal external inspection Mouth exam: Present: normal external inspection Teeth exam: Present: normal inspection Throat exam: Present: normal inspection - Neck Neck exam: Present: normal inspection, full ROM, trachea midline - Chest Chest inspection: Present: normal inspection, symmetric chest wall rise - Respiratory Respiratory exam: Present: normal lung sounds bilaterally - Cardiovascular Cardiovascular exam: Present: regular rate, normal rhythm, normal heart sounds - Abdominal Exam Abdominal exam: Present: soft, Non-Tender. Absent: tenderness, distention, guarding, rebound, rigidity - Extremities Exam Extremities exam: Present: normal inspection, full ROM. Absent: tenderness, pedal edema - Expanded Upper Extremity Exam Shoulder exam: Present: normal inspection, full ROM Arm exam: Present: normal inspection, full ROM Elbow exam: Present: normal inspection, full ROM Forearm/Wrist exam: Present: normal inspection, full ROM Hand exam: Present: normal inspection, full ROM Vascular exam: Normal: capillary refill, radial pulse - Expanded Lower Extremity Exam Hip/Pelvis exam: Present: normal inspection, full ROM Upper leg exam: Present: normal inspection, full ROM Knee exam: Present: normal inspection, full ROM Lower leg exam: Present: other (LE strength testing 4/5 bilaterally). Absent: swelling, abrasion Neurovascular/Tendon exam: Absent: motor deficit, sensory deficit, tendon deficit - Back Exam Back exam: Present: normal inspection, full ROM. Absent: tenderness - Neurological Exam Neurological exam: Present: alert, oriented X3 - Expanded Neurological Exam Patient oriented to: Present: person, place, time Coma Scale Eye Opening: Spontaneous Coma Scale Motor Response: Obeys Commands Coma Scale Verbal Response: Oriented Coma Scale Total: 15 - Psychiatric Psychiatric exam: Present: normal affect, normal mood - Skin Skin exam: Present: warm, dry, intact, normal color Course Course Narrative: Obtained CTH due to multiple falls. Pending CBC, CMP, UA. - Reevaluation(s) Reevaluation #1: Patient's BL LE weakness have improved without management. Time: 18:10 - Consultations Consultation #1: Neurology Dr. Siddiqui consulted due to history of [place]'s with worsening BL LE weakness of unknown etiology. MRI spine ordered. Patient to be admitted for observation. Time: 18:30 Consultation #2: Admitting hospitalist consulted and accepted admission to observation. Vital Signs Temperature 99.1 F 01/29/19 14:15 Pulse Rate 79 01/29/19 14:15 Respiratory Rate 18 01/29/19 14:15 Blood Pressure 146/95 01/29/19 14:15 O2 Sat by Pulse Oximetry 97 01/29/19 14:15 Temperature 99.1 F 01/29/19 14:15 Pulse Rate 71 01/29/19 17:57 Respiratory Rate 17 01/29/19 17:57 Blood Pressure 131/61 01/29/19 17:57 O2 Sat by Pulse Oximetry 98 01/29/19 17:57 Oxygen Delivery Oxygen Delivery Room Air Medical Decision Making - MDM Narrative Medical decision making narrative: 83-year-old male with history of Parkinson's disease presents with worsening bilateral lower extremity weakness with multiple falls. Blood work and imaging without explanation for his LE weakness. Patient to be admitted to observation per neurology pending MRI spine for bilateral LE weakness of unknown etiology. - Medical Records Medical records reviewed: Yes I reviewed the patient's medical records. - Lab Data Lab results reviewed: Yes I reviewed the patient's lab results. Result diagrams: 01/29/19 14:21 01/29/19 14:21 Lab Results 01/29/19 01/29/19 01/29/19 Range/Units 14:21 14:21 16:33 WBC 3.1 L (4.3-11.1) K/mcL RBC 4.46 (4.19-5.50) M/mcL Hgb 12.7 L (12.9-16.9) g/dL Hct 38.6 (37.5-50.1) % MCV 86.5 (83.0-100.0) fL MCH 28.5 (28.0-33.3) pg MCHC 32.9 (31.6-35.5) g/dL RDW 17.6 H (11.5-14.5) % Plt Count 122 L (140-400) K/mcL MPV 10.5 (9.4-12.4) fL Seg Neutrophils % 58.0 % Band Neutrophils % 2.0 (0-4) % Lymphocytes % 28.0 % Monocytes % 12.0 % Neutrophils # 1.9 (1.6-8.9) K/mcL Lymphocytes # 0.9 (0.6-4.6) K/mcL Monocytes # 0.4 (0.0-1.3) K/mcL Platelet Estimate Slight Decrease L (Normal) Sodium 135 L (136-145) mEq/L Potassium 3.6 (3.5-5.1) mEq/L Chloride 101 (98-107) mEq/L Carbon Dioxide 28 (23-29) mEq/L BUN 14 (8-23) mg/dL Creatinine 0.84 (0.70-1.30) mg/dL Est GFR ( Amer) > 60 (> 60) Est GFR (Non-Af Amer) > 60 (> 60) BUN/Creatinine Ratio 17 (6-26) Glucose 160 H (70-105) mg/dL Calculated Osmolality 284 (280-300) Calcium 9.4 (8.6-10.3) mg/dL Total Bilirubin 1.3 H (0.3-1.0) mg/dL Direct Bilirubin 0.3 H (0.0-0.2) mg/dL Indirect Bilirubin 1.0 (0.0-1.2) mg/dL AST 26 (13-39) Units/L ALT 11 (7-52) Units/L Alkaline Phosphatase 84 (34-104) Units/L Troponin I < 0.03 (< 0.04) ng/mL Serum Total Protein 6.7 (6.4-8.9) g/dL Albumin 4.5 (3.5-5.7) g/dL Globulin 2.2 L (2.4-3.5) g/dL Albumin/Globulin Ratio 2.0 (1.1-2.2) Urine Color Dark Yellow (Yellow) Urine Clarity Clear (Clear) Urine pH 5.0 (5.0-8.0) pH Units Ur Specific [place] 1.025 (1.010-1.025) Urine Protein 100 H (Neg-Trace) mg/dL Urine Glucose (UA) Normal (Normal) mg/dL Urine Ketones Negative (Negative) mg/dL Urine Blood Moderate H (Negative) Urine Nitrite Negative (Negative) Urine Bilirubin Small H (Negative) Urine Urobilinogen Normal (Normal) mg/dL Ur Leukocyte Esterase Negative (Negative) Urine Microscopic RBC 5-15 H (0-3) per hpf Urine Microscopic WBC 3-5 H (0-3) per hpf Ur Squamous Epith Cells Many H (None-Few) per lpf Urine Bacteria None Seen (None-Few) per hpf Hyaline Casts None Seen (None-Few) per lpf Ur Culture Indicated? NO (NO) - Radiology Data Radiology results reviewed: Yes I reviewed the patient's radiology results. - EKG Data EKG #1 EKG attestation: Yes I reviewed and interpreted this EKG. EKG results narrative: NSR HR 78 QT 373 probable left atrial enlargement, borderline low voltage. No significant changes. EKG shows normal: sinus rhythm When compared to previous EKG there are: no significant changes Interpretation: no acute changes Attestation Statement - Attestation Attestation: Rich Bolanos D.O., examined this patient and my medical decision-making was reviewed with the Resident Physician. I agree with the documented findings, disposition and treatment plan as described except to the extent set forth below.
[2019-01-29 15:17] LABS: Hematocrit 38.6 % (37.5-50.1); Hemoglobin 12.7 g/dL (12.9-16.9); Mean Corpuscular HGB Conc 32.9 g/dL (31.6-35.5); Mean Corpuscular Hemoglobin 28.5 pg (28.0-33.3); Mean Corpuscular Volume 86.5 fL (83.0-100.0); Mean Platelet Volume 10.5 fL (9.4-12.4); Platelet Count 122 K/mcL (140-400); Red Blood Count 4.46 M/mcL (4.19-5.50); Red Cell Distribution Width 17.6 % (11.5-14.5); White Blood Count 3.1 K/mcL (4.3-11.1)
[2019-01-29 15:40] LABS: Alanine Aminotransferase 11 Units/L (7-52); Albumin 4.5 g/dL (3.5-5.7); Alkaline Phosphatase 84 Units/L (34-104); Aspartate Amino Transferase 26 Units/L (13-39); BUN/Creatinine Ratio 17 (6-26); Bilirubin,Direct 0.3 mg/dL (0.0-0.2); Bilirubin,Total 1.3 mg/dL (0.3-1.0); Blood Urea Nitrogen 14 mg/dL (8-23); Calcium 9.4 mg/dL (8.6-10.3); Carbon Dioxide 28 mEq/L (23-29); Chloride 101 mEq/L (98-107); Globulin 2.2 g/dL (2.4-3.5); Glucose 160 mg/dL (70-105); Osmolality,Calculated 284 (280-300); Potassium 3.6 mEq/L (3.5-5.1); Sodium 135 mEq/L (136-145); Total Protein 6.7 g/dL (6.4-8.9); Troponin I < 0.03 ng/mL (< 0.04); eGFR For African Americans > 60 (> 60); eGFR For Non-African Americans > 60 (> 60)
[2019-01-29 16:05] LABS: Lymphocytes # 0.9 K/mcL (0.6-4.6); Monocytes # 0.4 K/mcL (0.0-1.3); Neutrophils # 1.9 K/mcL (1.6-8.9); Platelet Estimate Slight Decrease (Normal)
--- NOTE | 2019-01-29 16:05 | Emergency Department Note ---
Disposition Clinical Impression: Lower extremity weakness Qualifiers: Laterality: bilateral Qualified Code(s): R29.898 - Other symptoms and signs involving the musculoskeletal system Disposition: Admitted As Inpatient Condition: Fair Time of Disposition: 17:32 General Adult HPI - General Chief complaint: ED Weakness Stated complaint: General weakness Time Seen by Provider: 01/29/19 14:10 Source: patient, EMS Limitations: no limitations - History of Present Illness Pain Scale: 0 - Related Data Home Medications Medication Instructions Recorded Confirmed Aspirin 81 mg PO DAILY 04/24/16 01/29/19 Cyanocobalamin (B-12) [Vitamin B12] 1,000 mcg SQ QMONTH 04/24/16 01/29/19 Fluticasone/Salmeterol [Advair 1 puff IH DAILY 04/24/16 01/29/19 100-50 Diskus] Montelukast [Singulair] 10 mg PO DAILY 04/24/16 01/29/19 Nitroglycerin [Nitrostat] 0.4 mg SL Q5M PRN 04/24/16 01/29/19 Pravastatin Sodium 40 mg PO DAILY 04/24/16 01/29/19 Levothyroxine [Synthroid] 125 mcg PO DAILY 01/29/19 01/29/19 Allergies Allergy/AdvReac Type Severity Reaction Status Date / Time onabotulinumtoxinA Allergy Weakness Verified 10/27/16 11:23 [From Botox] rosuvastatin [From Crestor] Allergy Weakness Verified 10/27/16 11:23 Past Medical History - Past Medical History Medical history: Reports: coronary artery disease, myocardial infarction Psychiatric history: Reports: no psych history - Social History Smoking Status: Never smoker Smokeless Tobacco Status: No Alcohol use: Reports: none Drug use: Reports: none Physical Exam - General Limitations: no limitations General appearance: alert, in no apparent distress Course Vital Signs Temperature 99.1 F 01/29/19 14:15 Pulse Rate 79 01/29/19 14:15 Respiratory Rate 18 01/29/19 14:15 Blood Pressure 146/95 01/29/19 14:15 O2 Sat by Pulse Oximetry 97 01/29/19 14:15 Temperature 99.1 F 01/29/19 14:15 Pulse Rate 73 01/29/19 15:12 Respiratory Rate 18 01/29/19 15:12 Blood Pressure 108/60 01/29/19 15:12 O2 Sat by Pulse Oximetry 97 01/29/19 15:12 Oxygen Delivery Oxygen Delivery Room Air Medical Decision Making - Lab Data Lab results reviewed: Yes I reviewed the patient's lab results. Result diagrams: 01/29/19 14:21 01/29/19 14:21 Lab Results 01/29/19 01/29/19 01/29/19 Range/Units 14:21 14:21 16:33 WBC 3.1 L (4.3-11.1) K/mcL RBC 4.46 (4.19-5.50) M/mcL Hgb 12.7 L (12.9-16.9) g/dL Hct 38.6 (37.5-50.1) % MCV 86.5 (83.0-100.0) fL MCH 28.5 (28.0-33.3) pg MCHC 32.9 (31.6-35.5) g/dL RDW 17.6 H (11.5-14.5) % Plt Count 122 L (140-400) K/mcL MPV 10.5 (9.4-12.4) fL Seg Neutrophils % 58.0 % Band Neutrophils % 2.0 (0-4) % Lymphocytes % 28.0 % Monocytes % 12.0 % Neutrophils # 1.9 (1.6-8.9) K/mcL Lymphocytes # 0.9 (0.6-4.6) K/mcL Monocytes # 0.4 (0.0-1.3) K/mcL Platelet Estimate Slight Decrease L (Normal) Sodium 135 L (136-145) mEq/L Potassium 3.6 (3.5-5.1) mEq/L Chloride 101 (98-107) mEq/L Carbon Dioxide 28 (23-29) mEq/L BUN 14 (8-23) mg/dL Creatinine 0.84 (0.70-1.30) mg/dL Est GFR ( Amer) > 60 (> 60) Est GFR (Non-Af Amer) > 60 (> 60) BUN/Creatinine Ratio 17 (6-26) Glucose 160 H (70-105) mg/dL Calculated Osmolality 284 (280-300) Calcium 9.4 (8.6-10.3) mg/dL Total Bilirubin 1.3 H (0.3-1.0) mg/dL Direct Bilirubin 0.3 H (0.0-0.2) mg/dL Indirect Bilirubin 1.0 (0.0-1.2) mg/dL AST 26 (13-39) Units/L ALT 11 (7-52) Units/L Alkaline Phosphatase 84 (34-104) Units/L Troponin I < 0.03 (< 0.04) ng/mL Serum Total Protein 6.7 (6.4-8.9) g/dL Albumin 4.5 (3.5-5.7) g/dL Globulin 2.2 L (2.4-3.5) g/dL Albumin/Globulin Ratio 2.0 (1.1-2.2) Urine Color Dark Yellow (Yellow) Urine Clarity Clear (Clear) Urine pH 5.0 (5.0-8.0) pH Units Ur Specific [place] 1.025 (1.010-1.025) Urine Protein 100 H (Neg-Trace) mg/dL Urine Glucose (UA) Normal (Normal) mg/dL Urine Ketones Negative (Negative) mg/dL Urine Blood Moderate H (Negative) Urine Nitrite Negative (Negative) Urine Bilirubin Small H (Negative) Urine Urobilinogen Normal (Normal) mg/dL Ur Leukocyte Esterase Negative (Negative) Urine Microscopic RBC 5-15 H (0-3) per hpf Urine Microscopic WBC 3-5 H (0-3) per hpf Ur Squamous Epith Cells Many H (None-Few) per lpf Urine Bacteria None Seen (None-Few) per hpf Hyaline Casts None Seen (None-Few) per lpf Ur Culture Indicated? NO (NO) - Radiology Data Radiology results reviewed: Yes I reviewed the patient's radiology results. Chest X-Ray 01/29/19 14:58 IMPRESSION: Developing left lower lobe patchy opacity new since prior examination may represent developing pneumonia versus focal atelectasis. Recommend follow-up to resolution. D/ / 01/29/2019 15:46:23 Lb Marquez MD / Nirali Coleman Interpreting Provider: Lb Marquez MD Head CT 01/29/19 14:58 IMPRESSION: No acute intracranial abnormality. D/ / Vimal Segal MD / Vimal Segal MD Interpreting Provider: Vimal Segal MD Attestation Statement - Attestation Attestation: Rich Bolanos D.O., examined this patient and my medical decision-making was reviewed with the Resident Physician. I agree with the documented findings, disposition and treatment plan as described except to the extent set forth below. This is an 83-year-old male with a past medical history of Parkinson's disease not currently followed by neurology who presents with a complaint of weakness and multiple falls. The patient states he has had 3 falls in the last few days. He just feels weak. No syncopal or near syncopal episodes. Denies any prodromal symptoms. He fell about a week ago and was there for about 90 minutes without any help. Reports his legs are so weak he cannot really move them at this point. This comes and goes and is happened 3 times in the last week. They feel numb at the same time. Denies any back pain. No abdominal pain. No other complaints. General: Alert, no acute distress HENT: Normocephalic, Atraumatic Neck: No JVD Cardiovascular: Regular rate and rhythm. No appreciable murmurs Respiratory: Lungs CTAB. No wheezing/rhonchi Abdominal: Soft, non tender. No peritoneal findings Extremities: No peripheral edema Neuro: Alert, Mentating appropriately, the patient has 4/5 muscle strength in the bilateral lower extremity's. He has decreased sensation to light touch in the lower extremity. Skin: Warm, Dry Plan: CT imaging of the head, chest x-ray, labs and urinalysis. ED Procedure Note: EKG interpretation - I agree with the resident physician's documentation and interpretation of the patient's EKG. Sinus rhythm with a rate of 78 beats or minute. Normal axis. Normal intervals. Normal R-wave progression. No gross ST elevations or depressions. No acute ischemic findings. Case was discussed with neurology who will see the patient consultation. I also spoke with the social media executive who evaluated the patient and recommended the patient would require evaluation for PT/OT. All G did recommend MRIs of the spine which have been ordered. The patient is admitted to the hospitalist service.
[2019-01-29 16:43] LABS: Bilirubin,Urine Small (Negative); Blood,Urine Moderate (Negative); Clarity,Urine Clear (Clear); Color,Urine Dark Yellow (Yellow); Glucose,Urine (UA) Normal (Normal); Ketones,Urine Negative (Negative); Leukocyte Esterase,Urine Negative (Negative); Nitrite,Urine Negative (Negative); Protein,Urine 100 mg/dL (Neg-Trace); Specific Gravity,Urine 1.025 (1.010-1.025); Urobilinogen,Urine Normal (Normal)
[2019-01-29 16:45] LABS: Bacteria,Urine None Seen per hpf (None-Few); Hyaline Casts,Urine None Seen per lpf (None-Few); Squamous Epithelial Cell,Urine Many per lpf (None-Few)
[2019-01-29] MEDS ORDERED: traMADol 50 MG TABLET PO PRN (17:26)
[2019-01-29] MEDS ORDERED: Naloxone 0.4 MG/ML INJ IVP PRN (17:26)
[2019-01-29] MEDS ORDERED: Ipratropium/Albuterol Neb 3 ML IH PRN (17:29)
--- NOTE | 2019-01-29 18:09 | Internal Med History&Physical ---
Date of Encounter: 01/29/19 Time of Encounter: 18:04 Internal Medicine - H&P: HPI Chief complaint: weakness of the lower extr b/l Plans for Post Hospital Care: Home History of present illness: Mr. Kinsey is a 83 year old male PMH of CAD s/ CABG, COPD, frequent falls, and Parkinson's disease. Patient presented to the ED due to weakness of the lower extr b/l and frequent falls. Patient reports for the past week his legs has just given up on him and he has no strength in the lower extremities b/l. Reports he has tried to walked multiple times but has fallen three time, once was on the floor for more than 90 minutes before someone could come and help him. Reported today he got up to make breakfast and after he was done sat down to do some work on his computer and her was not able to get up from the chair. He denies urinary or bowel incontinence, denies fever, chill or productive cough. denies changes in his speak. Reports chronic weakness of the left upper extremity related to his Parkinson's disease. denies chest pain or shortness of breath, abdominal pain or diarrhea. Past Med Surg Social Fam HX - Past Medical History Medical history: coronary artery disease, myocardial infarction Additional medical history: parkinsons Psychiatric history: no psych history - Past Surgical History Additional surgical history: CABG, TRIPLE AND A QUINTUPLE - Social History Smoking Status: Never smoker Smokeless Tobacco Status: No Alcohol use: none Drug use: none - Family History Mother Hx Family Cardiac Disorders: Yes (CABG) Internal Medicine - H&P: Meds Aspirin 81 mg PO DAILY 04/24/16 [History] Cyanocobalamin (B-12) [Vitamin B12] 1,000 mcg SQ QMONTH 04/24/16 [History] Fluticasone/Salmeterol [Advair 100-50 Diskus] 1 puff IH DAILY 04/24/16 [History] Montelukast [Singulair] 10 mg PO DAILY 04/24/16 [History] Nitroglycerin [Nitrostat] 0.4 mg SL Q5M PRN 04/24/16 [History] Pravastatin Sodium 40 mg PO DAILY 04/24/16 [History] Levothyroxine [Synthroid] 125 mcg PO DAILY 01/29/19 [History] Allergy/AdvReac Type Severity Reaction Status Date / Time onabotulinumtoxinA Allergy Weakness Verified 10/27/16 11:23 [From Botox] rosuvastatin [From Crestor] Allergy Weakness Verified 10/27/16 11:23 All Systems PM: A 10-system review of systems was performed and is negative for pertinent findings except as documented above in the HPI. - Constitutional Constitutional: falls, weakness (lower extr b/l.), no chills - EENT Nose, mouth and throat: no mouth pain - Cardiovascular Cardiovascular ROS IM: no chest pain, no dyspnea on exertion, no lightheadedness, no palpitations - Respiratory Respiratory: no cough, no wheezing, no excessive phlegm production - Gastrointestinal Gastrointestinal: no abdominal pain, no nausea, no vomiting - Genitourinary Genitourinary ROS male: no dysuria, no urinary frequency, no urinary urgency - Musculoskeletal Musculoskeletal ROS IM: muscle weakness, no arthralgias, no atrophy, no stiffness - Integumentary Integumentary IM: no erythema - Neurological Neurological ROS: no headache(s) - Psychiatric Psychiatric: no irritability - Endocrine Endocrine IM: no cold intolerance, no excessive sweating - Hematologic/Lymphatic Hematologic/Lymphatic: no lymphadenopathy - Allergic/Immunologic Allergic/Immunologic: no GI upset with certain foods - Constitutional Vitals: Temp Pulse Resp BP Pulse Ox 99.1 F 71 17 131/61 98 01/29/19 14:15 01/29/19 17:57 01/29/19 17:57 01/29/19 17:57 01/29/19 17:57 Exam: Vitals: reviewed General: Alert and oriented x4. In mild distress due to generalized weakness Skin: dry oral mucus membrane, normal color, no rash, no lesions. HEENT: EOM, pupils equal, round and reactive. Cardiovascular: RRR, normal S1 & S2, no rubs, murmurs or gallops. Lungs: CTA b/l, no wheezes or crackles. Abdomen: Soft, non-tender, no rigidity. Extremities: strength is 5/5 in the upper and lower extr. reflexes 2+ in the lower extr b/l. Neurological: No focal neurological abnormalities. intentional tremors Rest of the physical exam is non contributory Internal Med - H&P Results - Labs CBC & Chem 7: 01/29/19 14:21 01/29/19 14:21 Labs: Short CBC 08/08/19 Range/Units 14:21 WBC 3.1 L (4.3-11.1) K/mcL Hgb 12.7 L (12.9-16.9) g/dL Hct 38.6 (37.5-50.1) % Plt Count 122 L (140-400) K/mcL Neutrophils # 1.9 (1.6-8.9) K/mcL BMP 01/29/19 14:21 Sodium 135 L Potassium 3.6 Chloride 101 Carbon Dioxide 28 BUN 14 Creatinine 0.84 Glucose 160 H Calcium 9.4 Cardiac Enzymes 01/29/19 Range/Units 14:21 Troponin I < 0.03 (< 0.04) ng/mL Liver Function 01/29/19 Range/Units 14:21 Total Bilirubin 1.3 H (0.3-1.0) mg/dL Direct Bilirubin 0.3 H (0.0-0.2) mg/dL AST 26 (13-39) Units/L ALT 11 (7-52) Units/L Alkaline Phosphatase 84 (34-104) Units/L Albumin 4.5 (3.5-5.7) g/dL Urine 01/29/19 Range/Units 16:33 Urine Color Dark Yellow (Yellow) Urine Clarity Clear (Clear) Urine pH 5.0 (5.0-8.0) pH Units Ur Specific [place] 1.025 (1.010-1.025) Urine Protein 100 H (Neg-Trace) mg/dL Urine Glucose (UA) Normal (Normal) mg/dL - Impressions ITS Impressions Chest X-Ray 01/29/19 14:58 IMPRESSION: Developing left lower lobe patchy opacity new since prior examination may represent developing pneumonia versus focal atelectasis. Recommend follow-up to resolution. D/ / 01/29/2019 15:46:23 Lb Marquez MD / Nirali Coleman Interpreting Provider: Lb Marquez MD Head CT 01/29/19 14:58 IMPRESSION: No acute intracranial abnormality. D/ / Vimal Segal MD / Vimal Segal MD Interpreting Provider: Vimal Segal MD - Diagnostic Studies Chest x-ray Status: image reviewed by me (possible infiltrate in the [place] lower lobe ) - Assessment and Plan (1) Pneumonia Current Visit: Yes Status: Suspected Qualifiers: Pneumonia type: due to unspecified organism Laterality: left Lung location: lower lobe of lung Qualified Code(s): J18.1 - Lobar pneumonia, uns pecified organism (2) Lower extremity weakness Current Visit: Yes Status: Acute Qualifiers: Laterality: bilateral Qualified Code(s): R29.898 - Other symptoms and signs involving the musculoskeletal system (3) DVT prophylaxis Current Visit: No Status: Chronic (4) Fall Current Visit: No Status: Acute Qualifiers: Encounter type: initial encounter Qualified Code(s): W19.XXXA - Unspecified fall, initial encounter (5) CAD (coronary artery disease) Current Visit: No Status: Chronic Qualifiers: Coronary Disease-Associated Artery/Lesion type: bypass graft [place] vs. transplanted heart: [place] heart Associated angina: without angina Qualified Code(s): I25.810 - Atherosclerosis of coronary artery bypass graft(s) without angina pectoris (6) Hypothyroid Current Visit: No Status: Chronic Qualifiers: Hypothyroidism type: unspecified Qualified Code(s): E03.9 - Hypothyroidism, unspecified (7) Parkinson disease Current Visit: No Status: Chronic - Summary of Assessment and Plan Summary of Assessment and Plan: 83 year old male PMH of CAD s/ CABG, COPD, frequent falls, and Parkinson's disease. Patient presented to the ED due to weakness of the lower extr b/l and frequent falls. Assessment: 1. weakness of the lower extr b/l 2. Suspected pneumonia 3. Frequent falls 4. CAD 5. HTN 6. DVT prophylaxis 7. Parkinson's disease 8. hypothyroid Plan - bronchodilators PRN - incentive spirometry - fall precautions - MR head and brain ordered - PT/OT ordered - Neurology consulted - will start patient empirically on a short course of levofloxacin 750mg/IV daily x3 days. as this is an elderly patient with worsening weakness and possible infiltrate on chest x-ray. - Gently IV hydration - will resume home levothyroxine dose - on Aspirin 81mg/PO daily - Heparin subq for dvt prophylaxis - Time Spent With Patient Total time spent is greater than 50% in coordination of care (as documented) at patient's floor/unit and/or counseling patient: Greater than 35 minutes (45)
[2019-01-29] MEDS ORDERED: D5% in 0.9% NACL 1,000 ML IVC SCH (18:15)
[2019-01-29] MEDS: levoFLOXacin 750 MG/150 ML 750 MG/150 ML BAG IVPB SCH (22:26)
[2019-01-29] MEDS: *HR* Heparin 5,000 UNIT/ML VIAL SQ SCH (22:26)
[2019-01-30] MEDS: *HR* Heparin 5,000 UNIT/ML VIAL SQ SCH ×2 (05:43→17:06)
[2019-01-30 06:21] LABS: Basophils % 0.9 %; Eosinophils % 1.2 %
[2019-01-30 06:22] LABS: Hematocrit 33.5 % (37.5-50.1); Hemoglobin 10.9 g/dL (12.9-16.9); Immature Granulocytes % 0.9 % (0-4); Immature Platelets 7.7 % (1.1-6.1); Lymphocytes % 24.7 %; Mean Corpuscular HGB Conc 32.5 g/dL (31.6-35.5); Mean Corpuscular Volume 89.1 fL (83.0-100.0); Mean Platelet Volume 10.7 fL (9.4-12.4); Monocytes # 1.6 K/mcL (0.0-1.3); Monocytes % 45.9 %; Neutrophils # 0.9 K/mcL (1.6-8.9); Platelet Count 102 K/mcL (140-400); Red Blood Count 3.76 M/mcL (4.19-5.50); Red Cell Distribution Width 17.7 % (11.5-14.5); Segmented Neutrophils % 26.4 %; White Blood Count 3.4 K/mcL (4.3-11.1)
[2019-01-30 06:25] LABS: Lymphocytes # 0.8 K/mcL (0.6-4.6)
[2019-01-30 06:41] LABS: BUN/Creatinine Ratio 18 (6-26); Blood Urea Nitrogen 14 mg/dL (8-23); Calcium 8.4 mg/dL (8.6-10.3); Carbon Dioxide 27 mEq/L (23-29); Chloride 102 mEq/L (98-107); Glucose 137 mg/dL (70-105); Magnesium 2.1 mg/dL (1.6-2.6); Osmolality,Calculated 289 (280-300); Phosphorous 2.5 mg/dL (2.7-4.5); Potassium 3.7 mEq/L (3.5-5.1); Sodium 138 mEq/L (136-145); eGFR For African Americans > 60 (> 60); eGFR For Non-African Americans > 60 (> 60)
[2019-01-30 07:22] LABS: Platelet Estimate Slight Decrease (Normal)
[2019-01-30 07:23] LABS: Anisocytosis 1+ (Not Present)
[2019-01-30] MEDS ORDERED: D5% in Lactated Ringers 1,000 ML IVC SCH (07:45)
[2019-01-30] MEDS: Cyanocobalamin (B-12) 1,000 MCG TABLET PO SCH (09:02)
[2019-01-30] MEDS: Aspirin Enteric Coated 81 MG Tablet PO SCH (09:02)
[2019-01-30] MEDS: levoFLOXacin 750 MG/150 ML 750 MG/150 ML BAG IVPB SCH (09:03)
--- NOTE | 2019-01-30 09:25 | Internal Med Progress Note ---
Hospitalist Progress Note - Encounter Date of Encounter: 01/30/19 Time of Encounter: 09:23 - Subjective Interval History: I have seen and evaluated the patient at bedside. patient reports weakness of the the lower extr b/l but reports feeling slightly stronger today. Denies bowel or urinary incontinence. denies nausea or vomiting. - Exam Vitals: Temp Pulse Resp BP Pulse Ox 98.4 F 92 16 117/57 94 01/30/19 07:12 01/30/19 07:12 01/30/19 07:12 01/30/19 07:12 01/30/19 07:12 Exam: Vitals: reviewed General: Alert and oriented x4. In mild distress due to generalized weakness Cardiovascular: RRR, normal S1 & S2, no rubs, murmurs or gallops. Lungs: CTA b/l, no wheezes or crackles. Abdomen: Soft, non-tender, no rigidity. NABS in all 4 quadrants Extremities: No edema b/l, strength is 5/5 in the upper and lower extr. Neurological: No focal neurological abnormalities. intentional tremors Rest of the physical exam is non contributory - Assessment and Plan (1) Compression fracture of T12 vertebra Current Visit: Yes Status: Acute (2) Pneumonia Current Visit: Yes Status: Suspected (3) Lower extremity weakness Current Visit: Yes Status: Acute (4) DVT prophylaxis Current Visit: No Status: Chronic (5) Fall Current Visit: No Status: Acute (6) CAD (coronary artery disease) Current Visit: No Status: Chronic (7) Hypothyroid Current Visit: No Status: Chronic (8) Parkinson disease Current Visit: No Status: Chronic (9) Rhabdomyolysis Current Visit: Yes Status: Acute (10) CAD (coronary artery disease), [place] coronary artery Current Visit: No Status: Chronic - Summary of Assessment and Plan Summary of Assessment and Plan: 83 year old male PMH of CAD s/ CABG, COPD, frequent falls, and Parkinson's disease. Patient presented to the ED due to weakness of the lower extr b/l and frequent falls. Assessment: 1. Acute compression Fracture of T12 2. weakness of the lower extr b/l 3. Pneumonia (Suspected) 4. Frequent falls 5. CAD 6. HTN 7. DVT prophylaxis 8. Parkinson's disease 9. Hypothyroid 10. Rhabdomyolysis Plan - MR of he head and brain: no acute abnormalities - MRI of thoracic spine: Acute compression fracture T12 resulting in 50% loss of vertebral body height. - Cervical X-rays 3 viewed ordered - Spine surgery has been consulted and called. Recommendations appreciated - C/W bronchodilators PRN and incentive spirometry - Daily PT/OT - Neurology recommendations appreciated - Patient is on levofloxacin 750mg/PO. will repeat chest x-ray, patient has received apropiate IV hydration, if there is an infiltrate it should be better visualized post IV hydration. - continue D5/LR@75ml/hr x1 litter - on levothyroxine 125 mcg/po daily - on Aspirin 81mg/PO daily - Heparin subq for dvt prophylaxis - Time Spent with Patient Total time spent is greater than 50% in coordination of care (as documented) at patient's floor/unit and/or counseling patient: Greater than 35 minutes (45) Plan of Care Discussed with: patient (and the nurse.) Internal Medicine: Result - Labs CBC & Chem 7: 01/30/19 05:50 01/30/19 05:50 Labs: Short CBC 01/29/19 01/30/19 Range/Units 14:21 05:50 WBC 3.1 L 3.4 L (4.3-11.1) K/mcL Hgb 12.7 L 10.9 L D (12.9-16.9) g/dL Hct 38.6 33.5 L (37.5-50.1) % Plt Count 122 L 102 L (140-400) K/mcL Neutrophils # 1.9 0.9 L (1.6-8.9) K/mcL BMP 01/29/19 01/30/19 14:21 05:50 Sodium 135 L 138 Potassium 3.6 3.7 Chloride 101 102 Carbon Dioxide 28 27 BUN 14 14 Creatinine 0.84 0.76 Glucose 160 H 137 H Calcium 9.4 8.4 L Cardiac Enzymes 01/29/19 Range/Units 14:21 Troponin I < 0.03 (< 0.04) ng/mL Liver Function 01/29/19 Range/Units 14:21 Total Bilirubin 1.3 H (0.3-1.0) mg/dL Direct Bilirubin 0.3 H (0.0-0.2) mg/dL AST 26 (13-39) Units/L ALT 11 (7-52) Units/L Alkaline Phosphatase 84 (34-104) Units/L Albumin 4.5 (3.5-5.7) g/dL Urine 01/29/19 Range/Units 16:33 Urine Color Dark Yellow (Yellow) Urine Clarity Clear (Clear) Urine pH 5.0 (5.0-8.0) pH Units Ur Specific [place] 1.025 (1.010-1.025) Urine Protein 100 H (Neg-Trace) mg/dL Urine Glucose (UA) Normal (Normal) mg/dL - Impressions Impressions Chest X-Ray 01/29/19 14:58 IMPRESSION: Developing left lower lobe patchy opacity new since prior examination may represent developing pneumonia versus focal atelectasis. Recommend follow-up to resolution. D/ / 01/29/2019 15:46:23 Lb Marquez MD / Nirali Coleman Interpreting Provider: Lb Marquez MD Head CT 01/29/19 14:58 IMPRESSION: No acute intracranial abnormality. D/ / Vimal Segal MD / Vimal Segal MD Interpreting Provider: Vimal Segal MD Lumbar Spine MRI 01/29/19 17:12 IMPRESSION: Acute compression fracture T12 resulting in 50% loss of vertebral body height. Degenerative changes of the lumbar spine resulting in mild impingement of the exiting L5 nerve root at L5-S1, on the left hand side. No acute intracranial abnormality identified. The findings were sent to the Radiology Results Communication Center at 8:00 pm on 01/29/2019to be communicated to a licensed caregiver. D/ / Chong Dominguez MD / Chong Dominguez MD Interpreting Provider: Chong Dominguez MD Thoracic Spine MRI 01/29/19 17:12 IMPRESSION: Acute compression fracture T12 resulting in 50% loss of vertebral body height. Degenerative changes of the lumbar spine resulting in mild impingement of the exiting L5 nerve root at L5-S1, on the left hand side. No acute intracranial abnormality identified. The findings were sent to the Radiology Results Communication Center at 8:00 pm on 01/29/2019to be communicated to a licensed caregiver. D/ / Chong Dominguez MD / Chong Dominguez MD Interpreting Provider: Chnog Dominguez MD Brain MRI 01/29/19 17:30 IMPRESSION: Acute compression fracture T12 resulting in 50% loss of vertebral body height. Degenerative changes of the lumbar spine resulting in mild impingement of the exiting L5 nerve root at L5-S1, on the left hand side. No acute intracranial abnormality identified. The findings were sent to the Radiology Results Communication Center at 8:00 pm on 01/29/2019to be communicated to a licensed caregiver. D/ / Chong Dominguez MD / Chong Dominguez MD Interpreting Provider: Chong Dominguez MD Consult Discharge Plan - Plan Referrals: Jaguar Gamez DO [Primary Care Provider] - (Appointment requested.) (1) Compression fracture of T12 vertebra Qualifiers: Encounter type: initial encounter Qualified Code(s): S22.080A - [place] compression fracture of T11-T12 vertebra, initial encounter for closed fracture (2) Pneumonia Qualifiers: Pneumonia type: due to unspecified organism Laterality: left Lung location: lower lobe of lung Qualified Code(s): J18.1 - Lobar pneumonia, unspecified organism (3) Lower extremity weakness Qualifiers: Laterality: bilateral Qualified Code(s): R29.898 - Other symptoms and signs involving the musculoskeletal system (5) Fall Qualifiers: Encounter type: initial encounter Qualified Code(s): W19.XXXA - Unspecified fall, initial encounter (6) CAD (coronary artery disease) Qualifiers: Coronary Disease-Associated Artery/Lesion type: bypass graft [place] vs. transplanted heart: [place] heart Associated angina: without angina Qualified Code(s): I25.810 - Atherosclerosis of coronary artery bypass graft(s) without angina pectoris (7) Hypothyroid Qualifiers: Hypothyroidism type: unspecified Qualified Code(s): E03.9 - Hypothyroidism, unspecified (9) Rhabdomyolysis Qualifiers: Rhabdomyolysis type: traumatic Encounter type: initial encounter Qualified Code(s): T79.6XXA - Traumatic ischemia of muscle, initial encounter (10) CAD (coronary artery disease), [place] coronary artery Qualifiers: [place] vs. transplanted heart: [place] heart Associated angina: with unspecified angina Qualified Code(s): I25.119 - Atherosclerotic heart disease of [place] coronary artery with unspecified angina pectoris
[2019-01-30] MEDS ORDERED: levoFLOXacin 750 MG TABLET PO SCH (09:45)
--- NOTE | 2019-01-30 09:57 | Neurology - Consult Note ---
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 MRI of brain and spinal cord showed no PUBLICITY DIRECTOR pathology. He may also have foot to the right side to a lesser degree. Would recommend aggressive PT and likely left ankle brace to help gait. He may benefit from outpatient RMG/NCV study after discharge. From neurology perspective, not much to offer while inpatient. May need spine consultation regarding the acute compressive fracture at T12, will defer to medical team in this regard. I saw spinal cord abnormalities. Will sign off at this time. Please call if any questions. (2) Peroneal neuropathy at knee Current Visit: Yes Status: Acute Patient's clinical history and neurological examination indicates a rather acute worsening of foot drop to the left side causing leg weakness and falling. MRI o f the thoracic spine, lumbar spine demonstrated no spinal cord pathology. Patient may have pre-existing foot drop mainly on the left side that is unlikely acutely aggravated by prolonged swinging activity in sitting position causing peroneal compression at the knee. He may also have similar pathology to the right side. This would be best evaluated with EMG/NCV study as an outpatient. Currently would recommend physical therapy and he may benefit from the use of ankle brace bilaterally or at least on the left side. Qualifiers: Laterality: left Qualified Code(s): G57.32 - Lesion of lateral popliteal nerve, left lower limb (3) Tremor of both hands Current Visit: Yes Status: Acute As mentioned above, patient has chronic tremors involving his hands more on the left side and it was initially thought that the patient may have tremor predominant Parkinson disease however, this has not progressed and he currently does not have any typical parkinsonian features including their is no significant muscular rigidity and no bradykinesia. The falling and leg weakness occurred rather acutely therefore this is likely not related to his tremors or Parkinson's features. History of Present Illness Chief complaint: leg weakness and falls HPI: Mr. Kinsey is a 83 year old male with past medical history significant for hypertension hyperlipidemia, tremor of nervous system possible tremor predominant Parkinson disease chronic bradycardia, hypothyroidism and arthritis who presented to the emergency room with new onset of leg weakness and frequent falls. Patient states that last Saturday he was sitting in the swing for about 4 hours after he got out of the swing, he collapsed on the floor and he was unable to get up and his grandson had to help him up and moved him into the room. He admits that he has foot prior to that time but after the sitting in the swing the foot drop was worse. He says that he believes that he was in the swing too long and it made his foot drop weaker. In the emergency room, patient's CT of the head showed no acute intracranial abnormality. Patient completed MRI of the brain, thoracic and lumbar spine which demonstrated acute compression fracture at T12 however, no spinal cord signal changes reported. There is also evidence of disc disease causing impingement of nerve root at the level of L5-S1 on the left side. Patient denies any significant ball and bladder difficulty. Patient reports no significant pain. Patient's has prior history of likely tremor predominant Parkinson disease however, he has no significant muscle rigidity or bradykinesia. He has tried and failed dopa therapy as well as dopamine agonist therapy. Currently I would say that he does not have typical Parkinson features. The tremors is likely related to a type of essential tremor. Past Med Surg Social Fam HX - Past Medical History Medical history: coronary artery disease, myocardial infarction Additional medical history: parkinsons Psychiatric history: no psych history - Past Surgical History Additional surgical history: CABG, TRIPLE AND A QUINTUPLE - Social History Smoking Status: Never smoker Smokeless Tobacco Status: No Alcohol use: none Drug use: none - Family History Mother Hx Family Cardiac Disorders: Yes (CABG) Medications and Allergies Aspirin 81 mg PO DAILY 04/24/16 [History] Fluticasone/Salmeterol [Advair 100-50 Diskus] 1 puff IH DAILY 04/24/16 [History] Montelukast [Singulair] 10 mg PO DAILY 04/24/16 [History] Nitroglycerin [Nitrostat] 0.4 mg SL Q5M PRN 04/24/16 [History] Cyanocobalamin (Vitamin B-12) [Vitamin B12] 1,000 mcg PO DAILY 01/29/19 [History] Levothyroxine [Synthroid] 125 mcg PO DAILY 01/29/19 [History] Pravastatin Sodium [Pravachol] 40 mg PO DAILY 01/29/19 [History] Allergy/AdvReac Type Severity Reaction Status Date / Time onabotulinumtoxinA Allergy Weakness Verified 10/27/16 11:23 [From Botox] rosuvastatin [From Crestor] Allergy Weakness Verified 10/27/16 11:23 All Systems: The remainder of the systems were reviewed and are negative - Constitutional Constitutional ROS IM: anorexia (no), chills (no), fever(s) (no), frequent falls (weak), headache(s) (no) - Nose, Mouth, Throat Nose, mouth and throat: abnormal hearing (no), dizziness (no), headache(s) (no), hoarseness (no) - Cardiovascular Cardiovascular ROS IM: chest pain (no), chest pain at rest (no), chest pain with activity (no) - Respiratory Respiratory IM: cough (no), dyspnea (no), hemoptysis (no), dyspnea on exertion (no) - Musculoskeletal Musculoskeletal ROS IM: abnormal gait (yes) - Neurological Neurological ROS: abnormal gait (yes), abnormal hearing (no), focal weakness (yes), frequent falls (yes), numbness (yes), tremor(s) (yes), other (foot drop) - Psychiatric Psychiatric general PM: abnormal sleep pattern (no), anhedonia (no) - Hematologic/Lymphatic Hematologic/Lymphatic pediatric: easy bleeding (no), easy bruising (no) - Allergic/Immunologic Allergic/Immunologic ROS PM: tongue swelling (n) Physical Examination - Vital Signs Vital Signs: Initial Vital Signs Temp Pulse Resp BP Pulse Ox 99.1 F 79 18 146/95 97 01/29/19 14:15 01/29/19 14:15 01/29/19 14:15 01/29/19 14:15 01/29/19 14:15 - Constitutional General appearance: comfortable - Neurologic Sensorimotor examination: other (Reduced pinprick touch and vibration senses to his feet bilaterally) Motor examination - right side: 4/5: toe extension (EHL), plantarflexion, 5/5: deltoids, biceps, triceps, wrist flexion, wrist extension, computer customer support specialist, hip flexors, tibialis Anterior, quadriceps Motor examination - left side: 3/5: toe extension (EHL), plantarflexion, 5/5: deltoids, biceps, triceps, wrist flexion, wrist extension, hip flexors, computer customer support specialist, quadriceps, tibialis Anterior Detailed sensory examination: other (Reduced pinprick, touch and vibration senses in his feet left more than right) Posture: other (None) Reflex and gait examination: other (I am not able to test his gait due to him having foot drop and refuses to get up) Reflexes: Biceps: 2+, Triceps: 2+, Brachioradialis: 2+, Patella: 2+, Achilles: 2+ Mental Status Examination: awake, alert, oriented to person, oriented to place, oriented to time, follows commands appropriately, answers questions appropriately, no agnosia, no aphasia, no aproxia Cranial nerve examination: PERRL, EOMI, visual adams intact, corneal reflexes brisk symmetrically, sensory to face intact, mastication intact, no facial asymmetry is present, no dysarthria, hearing is intact symmetrically, soft palate elevates bilaterally upon phonation, gag reflex intact, flexes SCM and trapezius muscles symmetrically with full power, tongue protrudes midline, no atrophy or facial fasiculations present Results - Laboratory Findings CBC and BMP: 01/30/19 05:50 01/30/19 05:50 Abnormal lab findings: Abnormal lab results WBC 3.4 K/mcL (4.3-11.1) L 01/30/19 05:50 RBC 3.76 M/mcL (4.19-5.50) L 01/30/19 05:50 Hgb 10.9 g/dL (12.9-16.9) L D 01/30/19 05:50 Hct 33.5 % (37.5-50.1) L 01/30/19 05:50 RDW 17.7 % (11.5-14.5) H 01/30/19 05:50 Plt Count 102 K/mcL (140-400) L 01/30/19 05:50 Neutrophils # 0.9 K/mcL (1.6-8.9) L 01/30/19 05:50 Monocytes # 1.6 K/mcL (0.0-1.3) H 01/30/19 05:50 Platelet Estimate Slight Decrease (Normal) L 01/30/19 05:50 Immature Plt Fraction 7.7 % (1.1-6.1) H 01/30/19 05:50 Anisocytosis 1+ (Not Present) A 01/30/19 05:50 Sodium 135 mEq/L (136-145) L 01/29/19 14:21 Glucose 137 mg/dL (70-105) H 01/30/19 05:50 Calcium 8.4 mg/dL (8.6-10.3) L 01/30/19 05:50 Phosphorus 2.5 mg/dL (2.7-4.5) L 01/30/19 05:50 Total Bilirubin 1.3 mg/dL (0.3-1.0) H 01/29/19 14:21 Direct Bilirubin 0.3 mg/dL (0.0-0.2) H 01/29/19 14:21 Creatine Kinase 4415 Units/L (30-223) H 01/30/19 05:50 Globulin 2.2 g/dL (2.4-3.5) L 01/29/19 14:21 Urine Protein 100 mg/dL (Neg-Trace) H 01/29/19 16:33 Urine Blood Moderate (Negative) H 01/29/19 16:33 Urine Bilirubin Small (Negative) H 01/29/19 16:33 Urine Microscopic RBC 5-15 per hpf (0-3) H 01/29/19 16:33 Urine Microscopic WBC 3-5 per hpf (0-3) H 01/29/19 16:33 Ur Squamous Epith Cells Many per lpf (None-Few) H 01/29/19 16:33 Consult Discharge Plan - Plan Referrals: Jaguar Gamez DO [Primary Care Provider] - (Appointment requested.)
[2019-01-30] MEDS ORDERED: Acetaminophen 325 MG TABLET PO ONE (20:14)
--- NOTE | 2019-01-30 20:38 | Spine Progress Note ---
Date of Encounter: 01/30/19 Time of Encounter: 20:35 - Assessment and Plan (1) Spondylolisthesis at L2-L3 level Current Visit: Yes Status: Chronic (2) Lumbar stenosis Current Visit: Yes Status: Chronic On exam is lying comfortably in bed in no acute distress. His hips move symmetrically. He is able to fire his quadriceps and hamstrings which is a 4 to motor scale. However, he has significant weakness in dorsiflexion and plantar flexion bilaterally essentially a 0-1 on a motor scale. He has a negative straight leg raise. He has no clonus. He has a tremor in his left upper ex tremity. Has a negative Nat sign. MRI of the lumbar spine reveals an acute compression fracture at T12 with 50% loss of height without significant retropulsion of fragments in the canal. He is a spondylolisthesis of L2 on L3 which is grade 1. He is multilevel foraminal stenosis L2-L5. This is moderate in degree. Impression: 1) bilateral foot drop 2) spondylolisthesis L2-3 3) lumbar s tenosis 4) tremor left hand Plan: The patient does not have any pain in his back and does not require treatment for his compression fracture. The usual treatments are analgesics alone or analgesics with bracing. I see no role for either at the moment and this is stable fracture pattern. I am also not inclined to believe his bilateral foot weakness is due to his stenosis. He may benefit from an EMG of his bilateral lower extremities on out patient basis to see if this is a peroneal neuropathy at the knee or other peripheral or or central nervous problem. Therefore I do not think he warrants immediate surgical decompression. He can follow-up in my office as an outpatient basis but I agree with Dr. Siddiqui of neurology bracing as appropriate with appropriate physical therapy. Qualifiers: Neurogenic claudication status: without neurogenic claudication Qualified Code(s): M48.061 - Spinal stenosis, lumbar region without neurogenic c laudication Subjective Principal diagnosis: Bilateral leg weakness, compression fracture Interval history: Mr. Kinsey is a 83 year old male with past medical history significant for hypertension hyperlipidemia, tremor of nervous system possible tremor predominant Parkinson disease chronic bradycardia, hypothyroidism and arthritis who presented to the emergency room with new onset of leg weakness and frequent falls. Patient states that last Saturday he was sitting in the swing for about 4 hours after he got out of the swing, he collapsed on the floor and he was unable to get up and his grandson had to help him up and moved him into the room. He admits that he has foot prior to that time but after the sitting in the swing t he foot drop was worse. He denies back pain. He denies radicular symptoms into the lower extremities. Patient denies any significant ball and bladder difficulty. Objective Vital signs: Vital Signs Temp Pulse Resp BP Pulse Ox 01/30/19 19:11 100.1 F H 68 16 123/84 96 01/30/19 14:50 100.1 F H 81 14 114/57 94 01/30/19 11:20 98.1 F 60 16 107/47 98 01/30/19 07:12 98.4 F 92 16 117/57 94 01/30/19 04:10 97.4 F L 72 16 135/54 94 01/29/19 23:04 98.1 F 66 16 94/50 95 Intake and Output 01/30/19 01/30/19 01/30/19 07:59 15:59 23:59 Intake Total 150 / 1043.7 893.7 / 1043.7 Output Total 300 / 300 Balance 150 / 743.7 593.7 / 743.7 Intake: IV Fluids 150 / 1043.7 893.7 / 1043.7 D5% And 0.9% Nacl 1000 Ml 1,000 819 / 819 ML @ 75 mls/hr IVC .[id number] [facility] Rx#:[id number] Levaquin Premix 750mg/150 mL 150 / 224.7 74.7 / 224.7 750 mg In 150 ml @ 100 mls/hr IVPB DAILY [facility] Rx#:[id number] Output: Urine 300 / 300 Other: Weight 68 kg Patient Weight 01/30/19 23:59 Weight 68 kg - Labs CBC & BMP: 01/30/19 05:50 01/30/19 05:50 Labs: Abnormal lab results WBC 3.4 K/mcL (4.3-11.1) L 01/30/19 05:50 RBC 3.76 M/mcL (4.19-5.50) L 01/30/19 05:50 Hgb 10.9 g/dL (12.9-16.9) L D 01/30/19 05:50 Hct 33.5 % (37.5-50.1) L 01/30/19 05:50 RDW 17.7 % (11.5-14.5) H 01/30/19 05:50 Plt Count 102 K/mcL (140-400) L 01/30/19 05:50 Neutrophils # 0.9 K/mcL (1.6-8.9) L 01/30/19 05:50 Monocytes # 1.6 K/mcL (0.0-1.3) H 01/30/19 05:50 Platelet Estimate Slight Decrease (Normal) L 01/30/19 05:50 Immature Plt Fraction 7.7 % (1.1-6.1) H 01/30/19 05:50 Anisocytosis 1+ (Not Present) A 01/30/19 05:50 Sodium 135 mEq/L (136-145) L 01/29/19 14:21 Glucose 137 mg/dL (70-105) H 01/30/19 05:50 Calcium 8.4 mg/dL (8.6-10.3) L 01/30/19 05:50 Phosphorus 2.5 mg/dL (2.7-4.5) L 01/30/19 05:50 Total Bilirubin 1.3 mg/dL (0.3-1.0) H 01/29/19 14:21 Direct Bilirubin 0.3 mg/dL (0.0-0.2) H 01/29/19 14:21 Creatine Kinase 4415 Units/L (30-223) H 01/30/19 05:50 Globulin 2.2 g/dL (2.4-3.5) L 01/29/19 14:21 Urine Protein 100 mg/dL (Neg-Trace) H 01/29/19 16:33 Urine Blood Moderate (Negative) H 01/29/19 16:33 Urine Bilirubin Small (Negative) H 01/29/19 16:33 Urine Microscopic RBC 5-15 per hpf (0-3) H 01/29/19 16:33 Urine Microscopic WBC 3-5 per hpf (0-3) H 01/29/19 16:33 Ur Squamous Epith Cells Many per lpf (None-Few) H 01/29/19 16:33 Consult Discharge Plan - Plan Referrals: Jaguar Gamez DO [Primary Care Provider] - (Appointment requested.)
[2019-01-31] MEDS: *HR* Heparin 5,000 UNIT/ML VIAL SQ SCH ×2 (05:30→16:45)
--- NOTE | 2019-01-31 07:39 | Electrocardiograph Report ---
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
[2019-01-31] MEDS: Cyanocobalamin (B-12) 1,000 MCG TABLET PO SCH (08:51)
[2019-01-31] MEDS: Aspirin Enteric Coated 81 MG Tablet PO SCH (08:51)
--- NOTE | 2019-01-31 09:03 | Internal Med Progress Note ---
Hospitalist Progress Note - Encounter Date of Encounter: 01/31/19 Time of Encounter: 09:02 - Subjective Interval History: I have seen and evaluated the patient at bedside. Patient reports doing better today, denies chest pain, nausea, vomiting or abdominal pain. denies abdominal pain. - Exam Vitals: Temp Pulse Resp BP Pulse Ox 97.5 F L 82 16 138/71 95 01/31/19 06:53 01/31/19 06:53 01/31/19 06:53 01/31/19 06:53 01/31/19 06:53 Exam: Vitals: reviewed General: Alert and oriented x4. No acute distress Cardiovascular: RRR, normal S1 & S2, no rubs, murmurs or gallops. Lungs: CTA b/l, no wheezes or crackles. Abdomen: Soft, non-tender, no rigidity. NABS in all 4 quadrants Extremities: No edema b/l, strength is 5/5 in the upper and lower extr. left foot drop Neurological: No focal neurological abnormalities. intentional tremors Rest of the physical exam is non contributory - Assessment and Plan (1) Compression fracture of T12 vertebra Current Visit: Yes Status: Acute (2) Lower extremity weakness Current Visit: Yes Status: Acute (3) Fall Current Visit: No Status: Acute (4) CAD (coronary artery disease) Current Visit: No Status: Chronic (5) Hypothyroid Current Visit: No Status: Chronic (6) Parkinson disease Current Visit: No Status: Chronic (7) Rhabdomyolysis Current Visit: Yes Status: Acute (8) CAD (coronary artery disease), [place] coronary artery Current Visit: No Status: Chronic (9) Foot drop, left Current Visit: Yes Status: Acute (10) Lumbar stenosis Current Visit: Yes Status: Chronic - Summary of Assessment and Plan Summary of Assessment and Plan: 83 year old male PMH of CAD s/ CABG, COPD, frequent falls, and Parkinson's disease. Patient presented to the ED due to weakness of the lower extr b/l and frequent falls. Assessment: 1. Left foot drop 2. Acute compression Fracture of T12 3. weakness of the lower extr b/l 4. Pneumonia (ruled out) 5. Frequent falls possible secondary to left foot drop 6. CAD 7. HTN 8. DVT prophylaxis 9. Parkinson's disease 10. Hypothyroid 10. Rhabdomyolysis Plan - Patient reported being diagnosed with a left foot drop about 3 years ago and wearing some boots which helped him a lot. He stopped using the boots because he thought he was healed as he did not have the foot drop when he wore the boots. - Left foot brace has been ordered. communicated to the nurse. - Spine surgery recommended against intervention for his compression fractures - C/W bronchodilators PRN and incentive spirometry - continue witb daily PT/OT - Neurology recommendations appreciated - Discontinue antibiotics. repeat chest x-ray negative for infiltrates or acute process. - c/w levothyroxine 125 mcg/po daily - on Aspirin 81mg/PO daily - Heparin subq for dvt prophylaxis Disposition - Patient will likely need rehab. pending PT/OT for disposition. - Time Spent with Patient Total time spent is greater than 50% in coordination of care (as documented) at patient's floor/unit and/or counseling patient: Greater than 35 minutes (45) Plan of Care Discussed with: patient (and the nurse.) Internal Medicine: Result - Labs CBC & Chem 7: 01/30/19 05:50 01/30/19 05:50 - Impressions Impressions Cervical Spine X-Ray 01/30/19 07:41 IMPRESSION: [id number] cervical spondylosis. D/ / 01/30/2019 11:56:48 Jack Biswas MD / izzy Interpreting Provider: Jack Biswas MD Chest X-Ray 01/30/19 09:35 IMPRESSION: 1. No active pulmonary disease. D/ / Thong Desouza MD / Thong Desouza MD Interpreting Provider: Thong Desouza MD Consult Discharge Plan - Plan Referrals: Jaguar Gamez DO [Primary Care Provider] - 02/05/19 9:30 am () (1) Compression fracture of T12 vertebra Qualifiers: Encounter type: initial encounter Qualified Code(s): S22.080A - Wedge compression fracture of T11-T12 vertebra, initial encounter for closed fracture (2) Lower extremity weakness Qualifiers: Laterality: bilateral Qualified Code(s): R29.898 - Other symptoms and signs involving the musculoskeletal system (3) Fall Qualifiers: Encounter type: initial encounter Qualified Code(s): W19.XXXA - Unspecified fall, initial encounter (4) CAD (coronary artery disease) Qualifiers: Coronary Disease-Associated Artery/Lesion type: bypass graft [place] vs. transplanted heart: marshall heart Associated angina: without angina Qualified Code(s): I25.810 - Atherosclerosis of coronary artery bypass graft(s) without angina pectoris (5) Hypothyroid Qualifiers: Hypothyroidism type: unspecified Qualified Code(s): E03.9 - Hypothyroidism, unspecified (7) Rhabdomyolysis Qualifiers: Rhabdomyolysis type: traumatic Encounter type: initial encounter Qualified Code(s): T79.6XXA - Traumatic ischemia of muscle, initial encounter (8) CAD (coronary artery disease), [place]all coronary artery Qualifiers: [place] vs. transplanted heart: marshall heart Associated angina: with unspecified angina Qualified Code(s): I25.119 - Atherosclerotic heart disease of [place] coronary artery with unspecified angina pectoris (10) Lumbar stenosis Qualifiers: Neurogenic claudication status: without neurogenic claudication Qualified Code(s): M48.061 - Spinal stenosis, lumbar region without neurogenic claudication
[2019-02-01] MEDS: *HR* Heparin 5,000 UNIT/ML VIAL SQ SCH ×2 (05:52→17:11)
[2019-02-01] MEDS: Aspirin Enteric Coated 81 MG Tablet PO SCH (08:14)
[2019-02-01] MEDS: Cyanocobalamin (B-12) 1,000 MCG TABLET PO SCH (08:14)
--- NOTE | 2019-02-01 08:55 | Internal Med Progress Note ---
Hospitalist Progress Note - Encounter Date of Encounter: 02/01/19 Time of Encounter: 08:48 - Subjective Interval History: I have seen and evaluated the patient at bedside. Patient reported feeling well. denies chest pain, shortness of breath, nausea or vomiting. - Exam Vitals: Temp Pulse Resp BP Pulse Ox 98.1 F 58 18 113/65 94 02/01/19 07:45 02/01/19 07:45 02/01/19 07:45 02/01/19 07:45 02/01/19 07:45 Exam: Vitals: reviewed General: Alert and oriented x4. No acute distress Cardiovascular: RRR, normal S1 & S2, no rubs, murmurs or gallops. Lungs: CTA b/l, no wheezes or crackles. Abdomen: Soft, non-tender, no rigidity. Extremities: No edema b/l, left foot drop Neurological: No focal neurological abnormalities. intentional tremors Rest of the physical exam is non contributory - Assessment and Plan (1) Compression fracture of T12 vertebra Current Visit: Yes Status: Acute (2) Lower extremity weakness Current Visit: Yes Status: Acute (3) Fall Current Visit: No Status: Acute (4) CAD (coronary artery disease) Current Visit: No Status: Chronic (5) Hypothyroid Current Visit: No Status: Chronic (6) Parkinson disease Current Visit: No Status: Chronic (7) Rhabdomyolysis Current Visit: Yes Status: Acute (8) CAD (coronary artery disease), [place] coronary artery Current Visit: No Status: Chronic (9) Foot drop, left Current Visit: Yes Status: Acute (10) Lumbar stenosis Current Visit: Yes Status: Chronic - Summary of Assessment and Plan Summary of Assessment and Plan: 83 year old male PMH of CAD s/ CABG, COPD, frequent falls, and Parkinson's disease. Patient presented to the ED due to weakness of the lower extr b/l and frequent falls. Assessment: 1. Left foot drop 2. Acute compression Fracture of T12 3. weakness of the lower extr b/l 4. Pneumonia (ruled out) 5. Frequent falls possible secondary to left foot drop 6. CAD 7. HTN 8. DVT prophylaxis 9. Parkinson's disease 10. Hypothyroid 10. Rhabdomyolysis Plan - Left foot brace has been ordered. pending - C/W bronchodilators PRN and incentive spirometry - daily PT/OT - On levothyroxine 125 mcg/po daily - on Aspirin 81mg/PO daily - Heparin subq for dvt prophylaxis Disposition - Patient to remain in the hospital pending placement to ECF/SNF - Time Spent with Patient Total time spent is greater than 50% in coordination of care (as documented) at patient's floor/unit and/or counseling patient: Greater than 35 minutes (45) Plan of Care Discussed with: patient (and the nurse.) Internal Medicine: Result - Labs CBC & Chem 7: 01/30/19 05:50 01/30/19 05:50 Consult Discharge Plan - Plan Referrals: Jaguar Gamez DO [Primary Care Provider] - 02/05/19 9:30 am () (1) Compression fracture of T12 vertebra Qualifiers: Encounter type: initial encounter Qualified Code(s): S22.080A - [place] compression fracture of T11-T12 vertebra, initial encounter for closed fracture (2) Lower extremity weakness Qualifiers: Laterality: bilateral Qualified Code(s): R29.898 - Other symptoms and signs involving the musculoskeletal system (3) Fall Qualifiers: Encounter type: initial encounter Qualified Code(s): W19.XXXA - Unspecified fall, initial encounter (4) CAD (coronary artery disease) Qualifiers: Coronary Disease-Associated Artery/Lesion type: bypass graft [place] vs. transplanted heart: [place] heart Associated angina: without angina Qualified Code(s): I25.810 - Atherosclerosis of coronary artery bypass graft(s) without angina pectoris (5) Hypothyroid Qualifiers: Hypothyroidism type: unspecified Qualified Code(s): E03.9 - Hypothyroidism, unspecified (7) Rhabdomyolysis Qualifiers: Rhabdomyolysis type: traumatic Encounter type: initial encounter Qualified Code(s): T79.6XXA - Traumatic ischemia of muscle, initial encounter (8) CAD (coronary artery disease), [place] coronary artery Qualifiers: [place] vs. transplanted heart: [place] heart Associated angina: with unspecified angina Qualified Code(s): I25.119 - Atherosclerotic heart disease of [place] coronary artery with unspecified angina pectoris (10) Lumbar stenosis Qualifiers: Neurogenic claudication status: without neurogenic claudication Qualified Code(s): M48.061 - Spinal stenosis, lumbar region without neurogenic claudication
[2019-02-02 05:20] LABS: BUN/Creatinine Ratio 24 (6-26); Blood Urea Nitrogen 19 mg/dL (8-23); Calcium 8.1 mg/dL (8.6-10.3); Carbon Dioxide 23 mEq/L (23-29); Chloride 101 mEq/L (98-107); Glucose 126 mg/dL (70-105); Osmolality,Calculated 282 (280-300); Phosphorous 3.4 mg/dL (2.7-4.5); Potassium 3.3 mEq/L (3.5-5.1); Sodium 134 mEq/L (136-145); eGFR For African Americans > 60 (> 60); eGFR For Non-African Americans > 60 (> 60)
[2019-02-02] MEDS: *HR* Heparin 5,000 UNIT/ML VIAL SQ SCH (05:21)
[2019-02-02] MEDS: Cyanocobalamin (B-12) 1,000 MCG TABLET PO SCH (08:50)
[2019-02-02] MEDS: Aspirin Enteric Coated 81 MG Tablet PO SCH (08:50)
--- NOTE | 2019-02-02 09:15 | Discharge Summary ---
Date of Encounter: 02/02/19 Time of Encounter: 09:12 - Discharge Diagnosis (1) Compression fracture of T12 vertebra Priority: Secondary Status: Chronic Qualifiers: Encounter type: initial encounter Qualified Code(s): S22.080A - [place] compression fracture of T11-T12 vertebra, initial encounter for closed fracture (2) Lower extremity weakness Priority: Secondary Status: Chronic Qualifiers: Laterality: bilateral Qualified Code(s): R29.898 - Other symptoms and signs involving the musculoskeletal system (3) Fall Priority: Secondary Status: Chronic Qualifiers: Encounter type: initial encounter Qualified Code(s): W19.XXXA - Unspecified fall, initial encounter (4) CAD (coronary artery disease) Priority: Secondary Status: Chronic Qualifiers: Coronary Disease-Associated Artery/Lesion type: bypass graft [place] vs. transplanted heart: [place] heart Associated angina: without angina Qualified Code(s): I25.810 - Atherosclerosis of coronary artery bypass graft(s) without angina pectoris (5) Hypothyroid Priority: Secondary Status: Chronic Qualifiers: Hypothyroidism type: unspecified Qualified Code(s): E03.9 - Hypothyroidism, unspecified (6) Parkinson disease Priority: Secondary Status: Chronic (7) Rhabdomyolysis Priority: Secondary Status: Resolved Qualifiers: Rhabdomyolysis type: traumatic Encounter type: initial encounter Qualified Code(s): T79.6XXA - Traumatic ischemia of muscle, initial encounter (8) Foot drop, left Priority: Primary Status: Acute (9) Lumbar stenosis Priority: Secondary Status: Chronic Qualifiers: Neurogenic claudication status: without neurogenic claudication Qualified Code(s): M48.061 - Spinal stenosis, lumbar region without neurogenic claudication Hospital course: Mr. Kinsey is a 83 year old male PMH of CAD s/ CABG, COPD, frequent falls, left foot drop and Parkinson's disease. Patient presented to the ED due to weakness of the lower extr b/l and frequent falls. skeletal survey done. CT/CT head/brain wo con IMPRESSION: No acute intracranial abnormality. MR/MR lumbar spine wo con IMPRESSION: Acute compression fracture T12 resulting in 50% loss of vertebral body height. Degenerative changes of the lumbar spine resulting in mild imp ingement of the exiting L5 nerve root at L5-S1, on the left hand side. Brain MRI: No acute intracranial abnormality identified. Neurology and spinal surgery consulted: believed the frequent falls are secondary to left foot drop. Recommended aggressive PT and likely left ankle brace to help gait and outpatient RMG/NCV study after discharge. Brace ordered while in patient. Patient is hemodynamically stable to be discharged to SNF/ECF. - Time Spent with Patient Total time spent providing and/or coordinating discharge services: Time spent: Greater than 30 minutes (35) - Discharge Medications Prescriptions: Continued Aspirin 81 mg PO DAILY Nitroglycerin [Nitrostat] 0.4 mg SL Q5M PRN PRN Reason: Chest Pain Fluticasone/Salmeterol [Advair 100-50 Diskus] 1 puff IH DAILY Montelukast [Singulair] 10 mg PO DAILY Levothyroxine [Synthroid] 125 mcg PO DAILY Cyanocobalamin (Vitamin B-12) [Vitamin B12] 1,000 mcg PO DAILY Pravastatin Sodium [Pravachol] 40 mg PO DAILY Home Medications: Aspirin 81 mg PO DAILY 04/24/16 [History] Fluticasone/Salmeterol [Advair 100-50 Diskus] 1 puff IH DAILY 04/24/16 [History] Montelukast [Singulair] 10 mg PO DAILY 04/24/16 [History] Nitroglycerin [Nitrostat] 0.4 mg SL Q5M PRN 04/24/16 [History] Cyanocobalamin (Vitamin B-12) [Vitamin B12] 1,000 mcg PO DAILY 01/29/19 [History] Levothyroxine [Synthroid] 125 mcg PO DAILY 01/29/19 [History] Pravastatin Sodium [Pravachol] 40 mg PO DAILY 01/29/19 [History] Allergies/Adverse Reactions: Allergy/AdvReac Type Severity Reaction Status Date / Time onabotulinumtoxinA Allergy Weakness Verified 10/27/16 11:23 [From Botox] rosuvastatin [From Crestor] Allergy Weakness Verified 10/27/16 11:23 Date of admission: 01/30/19 14:35 Primary care physician: Cesar Gamez DO Consults: 01/29/19 17:03 Consult to Neurology [CONS] Stat Consulting Provider: [facility] Reason for Consult: weakness of BL LE Call Completed: Yes 01/29/19 17:27 Consult to Occupational Therapy [CONS] Routine Comment: Evaluate, develop and implement POC Reason for Consult: generalized weakness Does patient have active BEDREST order?: No Is patient medically & hemodynamically stable?: Yes Consult to Physical Therapy [CONS] Routine Comment: Evaluate, develop and implement POC Reason for Consult: generalized weakness Does patient have active BEDREST order?: No Is patient medically & hemodynamically stable?: Yes 01/30/19 07:44 Consult to Orthopedic Surgery [CONS] Routine Consulting Provider: Orthoped[facility] Reason for Consult: Acute compression fracture T12 resulting in 50% loss of vertebral body height. Call Completed: Yes 01/30/19 08:59 Consult to Nurse Navigator [CONS] Routine Comment: PNEUMONIA 02/02/19 08:44 Consult to Senior Technical Architect [CONS] Routine Reason for SW Consult: PT/OT RECOMMEND IP SWING BED - Constitutional Vitals: Temp Pulse Resp BP Pulse Ox 98.0 F 47 19 92/46 95 02/02/19 08:17 02/02/19 08:17 02/02/19 08:17 02/02/19 08:17 02/02/19 08:17 Exam: Vitals: reviewed General: Alert and oriented x4. No acute distress Cardiovascular: RRR, normal S1 & S2, no rubs, murmurs or gallops. Lungs: CTA b/l, no wheezes or crackles. Abdomen: Soft, non-tender, no rigidity. NABS in all 4 quadrants Extremities: No edema b/l, left foot drop Neurological: No focal neurological abnormalities. intentional tremors Rest of the physical exam is non contributory - Patient Status Disposition: Transfer SNF Condition: Fair Functional capacity at discharge: uses cane/walker Overall status at discharge: patient is progressing back to baseline - Discharge Instructions Follow Up With: Jaguar Gamez DO [Primary Care Provider] - 02/05/19 9:30 am () - Diet and Activity Activity: as per physical therapy Diet: advance to your usual diet
--- NOTE | 2019-02-02 09:24 | Physician Discharge Referral ---
ExtendedCare Referral Info Transfer To: [facility] - Diagnosis (1) Compression fracture of T12 vertebra Priority: Primary Status: Chronic (2) Lower extremity weakness Priority: Secondary Status: Chronic (3) Fall Priority: Primary Status: Chronic (4) CAD (coronary artery disease) Priority: Secondary Status: Chronic (5) Hypothyroid Priority: Secondary Status: Chronic (6) Parkinson disease Priority: Secondary Status: Chronic (7) Rhabdomyolysis Priority: Secondary Status: Resolved (8) Foot drop, left Priority: Primary Status: Acute (9) Lumbar stenosis Priority: Secondary Status: Chronic Prognosis: Fair Aware of Diagnosis: Patient Aware of Prognosis: Patient - Transfer Medications Home Medications: Aspirin 81 mg PO DAILY 04/24/16 [History] Fluticasone/Salmeterol [Advair 100-50 Diskus] 1 puff IH DAILY 04/24/16 [History] Montelukast [Singulair] 10 mg PO DAILY 04/24/16 [History] Nitroglycerin [Nitrostat] 0.4 mg SL Q5M PRN 04/24/16 [History] Cyanocobalamin (Vitamin B-12) [Vitamin B12] 1,000 mcg PO DAILY 01/29/19 [History] Levothyroxine [Synthroid] 125 mcg PO DAILY 01/29/19 [History] Pravastatin Sodium [Pravachol] 40 mg PO DAILY 01/29/19 [History] Allergies/Adverse Reactions: Allergy/AdvReac Type Severity Reaction Status Date / Time onabotulinumtoxinA Allergy Weakness Verified 10/27/16 11:23 [From Botox] rosuvastatin [From Crestor] Allergy Weakness Verified 10/27/16 11:23 - Respiratory Orders None Smoking Cessation: Smoking cessation has been advised. For more information, call the [place] Tobacco Quit Line at 4-383-HAKB-NOW. - Advance Directives Code Status: Full Code - Mobility Orders Ambulate - Rehabiliation Orders Rehab Potential: Fair Rehab Orders: Evaluation for Physical Therapy, Evaluation for Occupational Therapy - Diet Orders Regular CERTIFICATION: I certify that the transfer of the above named patient to an Extended Care Facility is necessary for the continuing treatment of the diagnosis listed. The above information is true and accurate reflection of patient's current condition. Confidential - Redisclosure prohibited without a patient's written consent.
[2019-02-02 11:24] VITALS: BP 97/50
== END 2019-02-02 14:22 | DRG 551 ==
LOC: EMEROOARM 14:09 → 3BNU 14:09 → SUATTDRO 01-30 14:35
PROVIDERS: ADMIT Internal Medicine; ATTEND Internal Medicine

== ENCOUNTER 2019-05-14 11:05 | Observation (INO) ==
[2019-05-14 11:50] LABS: Hematocrit 38.2 % (37.5-50.1); Hemoglobin 12.4 g/dL (12.9-16.9); Lymphocytes # 1.1 K/mcL (0.6-4.6); Mean Corpuscular HGB Conc 32.5 g/dL (31.6-35.5); Mean Corpuscular Hemoglobin 29.2 pg (28.0-33.3); Mean Corpuscular Volume 89.9 fL (83.0-100.0); Mean Platelet Volume 10.1 fL (9.4-12.4); Platelet Count 147 K/mcL (140-400); Red Blood Count 4.25 M/mcL (4.19-5.50); Red Cell Distribution Width 17.2 % (11.5-14.5); White Blood Count 3.9 K/mcL (4.3-11.1)
[2019-05-14 11:58] LABS: Bilirubin,Urine Negative (Negative); Blood,Urine Negative (Negative); Clarity,Urine Clear (Clear); Color,Urine Dark Yellow (Yellow); Glucose,Urine (UA) Normal (Normal); Ketones,Urine Negative (Negative); Leukocyte Esterase,Urine Negative (Negative); Nitrite,Urine Negative (Negative); Protein,Urine Negative (Neg-Trace); Specific Gravity,Urine 1.026 (1.010-1.025); Urobilinogen,Urine Normal (Normal)
[2019-05-14 12:06] LABS: Alanine Aminotransferase 7 Units/L (7-52); Albumin 4.5 g/dL (3.5-5.7); Alkaline Phosphatase 75 Units/L (34-104); Aspartate Amino Transferase 14 Units/L (13-39); BUN/Creatinine Ratio 30 (6-26); Bilirubin,Total 1.2 mg/dL (0.3-1.0); Blood Urea Nitrogen 20 mg/dL (8-23); Calcium 9.5 mg/dL (8.6-10.3); Carbon Dioxide 28 mEq/L (23-29); Chloride 102 mEq/L (98-107); Creatine Kinase 76 Units/L (30-223); Globulin 2.3 g/dL (2.4-3.5); Glucose 99 mg/dL (70-105); Magnesium 2.1 mg/dL (1.6-2.6); Osmolality,Calculated 291 (280-300); Potassium 4.1 mEq/L (3.5-5.1); Sodium 139 mEq/L (136-145); Total Protein 6.8 g/dL (6.4-8.9); Troponin I < 0.03 ng/mL (< 0.04); eGFR For African Americans > 60 (> 60); eGFR For Non-African Americans > 60 (> 60)
[2019-05-14 12:19] LABS: Thyroid Stimulating Hormone 10.804 mcIU/mL (0.340-5.600)
[2019-05-14 12:38] LABS: Eosinophils # 0.2 K/mcL (0.0-0.6); Monocytes # 0.4 K/mcL (0.0-1.3); Neutrophils # 2.3 K/mcL (1.6-8.9)
[2019-05-14 12:39] LABS: Anisocytosis 1+ (Not Present); Platelet Estimate Slight Decrease (Normal)
[2019-05-14] MEDS ORDERED: Naloxone 0.4 MG/ML INJ IVP PRN (13:18)
[2019-05-14] MEDS ORDERED: Ondansetron 4 MG/2 ML VIAL IVP PRN (13:18)
[2019-05-14] MEDS ORDERED: Nitroglycerin 0.4 MG TAB.SUBL SL PRN (13:22)
[2019-05-14 13:54] LABS: Triiodothyronine (T3) Free 2.76 pg/mL (2.50-3.90)
[2019-05-14] MEDS: *HR* Heparin 5,000 UNIT/ML VIAL SQ SCH (18:22)
[2019-05-15] MEDS: *HR* Heparin 5,000 UNIT/ML VIAL SQ SCH (05:47)
[2019-05-15 06:34] LABS: BUN/Creatinine Ratio 34 (6-26); Blood Urea Nitrogen 20 mg/dL (8-23); Calcium 9.2 mg/dL (8.6-10.3); Carbon Dioxide 30 mEq/L (23-29); Chloride 102 mEq/L (98-107); Glucose 90 mg/dL (70-105); Magnesium 2.1 mg/dL (1.6-2.6); Osmolality,Calculated 292 (280-300); Potassium 4.2 mEq/L (3.5-5.1); Sodium 140 mEq/L (136-145); eGFR For African Americans > 60 (> 60); eGFR For Non-African Americans > 60 (> 60)
[2019-05-15 06:35] LABS: Hematocrit 36.9 % (37.5-50.1); Hemoglobin 12.5 g/dL (12.9-16.9); Immature Platelets 8.9 % (1.1-6.1); Mean Corpuscular HGB Conc 33.9 g/dL (31.6-35.5); Mean Corpuscular Hemoglobin 29.3 pg (28.0-33.3); Mean Corpuscular Volume 86.4 fL (83.0-100.0); Mean Platelet Volume 10.5 fL (9.4-12.4); Red Blood Count 4.27 M/mcL (4.19-5.50); Red Cell Distribution Width 17.4 % (11.5-14.5); White Blood Count 3.3 K/mcL (4.3-11.1)
[2019-05-15] MEDS ORDERED: Cyanocobalamin (B-12) 1,000 MCG TABLET PO SCH (09:00)
[2019-05-15] MEDS ORDERED: Aspirin Enteric Coated 81 MG Tablet PO SCH (09:00)
[2019-05-15] MEDS ORDERED: Budesonide/Formoterol 80/4.5 1 PUFF INH IH SCH (10:00)
[2019-05-15 11:03] VITALS: BP 113/50
== END 2019-05-15 14:38 | disposition home health service (06) ==
LOC: 3ANU 11:05 → EMEROOARM 11:05 → SUATTDRO 16:17 → 3ANU 17:04
PROVIDERS: ADMIT Family Medicine; ATTEND Internal Medicine

== ENCOUNTER 2019-06-18 17:55 | Inpatient (IN) ==
[2019-06-18] MEDS ORDERED: Isovue-370 500 ML BOTTLE IVP ONE (18:11)
[2019-06-18 19:13] LABS: Basophils % 0.2 %; Hematocrit 34.6 % (37.5-50.1); Hemoglobin 11.5 g/dL (12.9-16.9); Immature Granulocytes % 0.6 % (0-4); Lymphocytes # 0.4 K/mcL (0.6-4.6); Lymphocytes % 7.4 %; Mean Corpuscular HGB Conc 33.2 g/dL (31.6-35.5); Mean Corpuscular Hemoglobin 28.8 pg (28.0-33.3); Mean Corpuscular Volume 86.7 fL (83.0-100.0); Mean Platelet Volume 10.6 fL (9.4-12.4); Monocytes # 1.7 K/mcL (0.0-1.3); Monocytes % 35.2 %; Neutrophils # 2.7 K/mcL (1.6-8.9); Platelet Count 124 K/mcL (140-400); Red Blood Count 3.99 M/mcL (4.19-5.50); Red Cell Distribution Width 16.9 % (11.5-14.5); Segmented Neutrophils % 56.6 %; White Blood Count 4.7 K/mcL (4.3-11.1)
[2019-06-18 19:14] LABS: INR 1.2; Prothrombin Time 13.6 Seconds (9.4-12.1)
[2019-06-18 19:17] LABS: Activated Partial Thrombo Time 23.4 Seconds (26.0-36.0)
[2019-06-18 19:34] LABS: BUN/Creatinine Ratio 33 (6-26); Blood Urea Nitrogen 22 mg/dL (8-23); Calcium 8.6 mg/dL (8.6-10.3); Carbon Dioxide 25 mEq/L (23-29); Chloride 104 mEq/L (98-107); Glucose 124 mg/dL (70-105); Magnesium 1.7 mg/dL (1.6-2.6); Osmolality,Calculated 289 (280-300); Potassium 3.3 mEq/L (3.5-5.1); Sodium 137 mEq/L (136-145); eGFR For African Americans > 60 (> 60); eGFR For Non-African Americans > 60 (> 60)
[2019-06-18 20:29] LABS: Bilirubin,Urine Small (Negative); Blood,Urine Negative (Negative); Clarity,Urine Clear (Clear); Color,Urine Dark Yellow (Yellow); Glucose,Urine (UA) Normal (Normal); Ketones,Urine Trace mg/dL (Negative); Leukocyte Esterase,Urine Negative (Negative); Nitrite,Urine Negative (Negative); PH,Urine 5.5 pH Units (5.0-8.0); Protein,Urine Trace mg/dL (Neg-Trace); Specific Gravity,Urine > 1.030 (1.010-1.025); Urobilinogen,Urine Normal (Normal)
[2019-06-18] MEDS ORDERED: *HR* Heparin 5,000 UNIT/ML VIAL IVP PRN ×2 (21:54)
[2019-06-18] MEDS ORDERED: *HR* Heparin 5,000 UNIT/ML VIAL IVP ONE (21:54)
[2019-06-18] MEDS ORDERED: Heparin 25,000 UNIT/250 ML D5W 25,000 UNIT/250 ML IV.SOLN IVC SCH (22:00)
[2019-06-19] MEDS ORDERED: Naloxone 0.4 MG/ML INJ IVP PRN (04:23)
[2019-06-19] MEDS ORDERED: Ondansetron ODT 4 MG TAB.RAPDIS SL PRN (04:23)
[2019-06-19] MEDS ORDERED: 0.9 % Sodium Chloride 1,000 ML IVC SCH (04:30)
[2019-06-19] MEDS ORDERED: Potassium Chloride Elixir 20 MEQ/15 ML UDC PO ONE (04:31)
[2019-06-19 05:20] LABS: INR 1.2; Prothrombin Time 14.1 Seconds (9.4-12.1)
[2019-06-19 05:21] LABS: Immature Reticulocyte % 18.1 % (11.0-38.0); Reticulocyte % 2.6 % (1.6-2.8)
[2019-06-19 05:22] LABS: Basophils % 0.8 %; Eosinophils % 0.6 %; Hematocrit 35.1 % (37.5-50.1); Hemoglobin 11.2 g/dL (12.9-16.9); Immature Granulocytes % 0.6 % (0-4); Lymphocytes # 0.8 K/mcL (0.6-4.6); Lymphocytes % 22.2 %; Mean Corpuscular HGB Conc 31.9 g/dL (31.6-35.5); Mean Corpuscular Hemoglobin 29.1 pg (28.0-33.3); Mean Corpuscular Volume 91.2 fL (83.0-100.0); Mean Platelet Volume 10.1 fL (9.4-12.4); Monocytes # 1.9 K/mcL (0.0-1.3); Monocytes % 53.2 %; Neutrophils # 0.8 K/mcL (1.6-8.9); Platelet Count 112 K/mcL (140-400); Red Blood Count 3.85 M/mcL (4.19-5.50); Red Cell Distribution Width 17.1 % (11.5-14.5); Segmented Neutrophils % 22.6 %; White Blood Count 3.6 K/mcL (4.3-11.1)
[2019-06-19 05:36] LABS: Alanine Aminotransferase 6 Units/L (7-52); Albumin 3.7 g/dL (3.5-5.7); Albumin/Globulin Ratio 1.8 (1.1-2.2); Alkaline Phosphatase 61 Units/L (34-104); Aspartate Amino Transferase 14 Units/L (13-39); BUN/Creatinine Ratio 32 (6-26); Bilirubin,Total 0.9 mg/dL (0.3-1.0); Blood Urea Nitrogen 19 mg/dL (8-23); Calcium 8.8 mg/dL (8.6-10.3); Carbon Dioxide 27 mEq/L (23-29); Chloride 104 mEq/L (98-107); Chol/HDL Ratio 4.2 (0-4.9); Cholesterol 101 mg/dL (< 200); Globulin 2.1 g/dL (2.4-3.5); Glucose 116 mg/dL (70-105); HDL Cholesterol 24 mg/dL (40-59); LDL Cholesterol,Calculated 59 mg/dL (0-99); Magnesium 1.9 mg/dL (1.6-2.6); Osmolality,Calculated 287 (280-300); Phosphorous 2.8 mg/dL (2.7-4.5); Potassium 3.4 mEq/L (3.5-5.1); Sodium 137 mEq/L (136-145); Total Protein 5.8 g/dL (6.4-8.9); Triglycerides 88 mg/dL (< 150); eGFR For African Americans > 60 (> 60); eGFR For Non-African Americans > 60 (> 60)
[2019-06-19 05:38] LABS: % Iron Saturation 17 % (20-55); Iron 55 mcg/dL (65-175); Transferrin 225 mg/dL (203-362)
[2019-06-19 05:55] LABS: Ferritin 213 ng/mL (20-250)
[2019-06-19 06:05] LABS: Anisocytosis 1+ (Not Present); Microcytosis Present (Not Present); Platelet Estimate Slight Decrease (Normal)
[2019-06-19] MEDS ORDERED: Nitroglycerin 0.4 MG TAB.SUBL SL PRN (08:06)
[2019-06-19] MEDS ORDERED: D5% in Water 1,000 ML IVC PRN (08:07)
[2019-06-19] MEDS ORDERED: Dextrose Gel 15 GM/37.5 ML TUBE PO PRN ×2 (08:07)
[2019-06-19] MEDS ORDERED: *HR* Dextrose 50 % in Water (Syg) 50 ML SYRINGE IVP PRN (08:07)
[2019-06-19] MEDS ORDERED: D5% in 0.9% NACL 1,000 ML IVC SCH ×2 (08:15→09:31)
[2019-06-19 08:55] LABS: Estimated Average Glucose 91 mg/dl
[2019-06-19] MEDS: Cyanocobalamin (B-12) 1,000 MCG TABLET PO SCH (10:13)
[2019-06-19] MEDS: Budesonide/Formoterol 80/4.5 1 PUFF INH IH SCH (10:50)
[2019-06-19] MEDS ORDERED: Insulin LISPRO 300 UNITS/3 ML VIAL SQ SCH (12:00)
[2019-06-19 17:41] LABS: Bilirubin,Urine Negative (Negative); Blood,Urine Negative (Negative); Clarity,Urine Clear (Clear); Color,Urine Dark Yellow (Yellow); Glucose,Urine (UA) Normal (Normal); Ketones,Urine Negative (Negative); Leukocyte Esterase,Urine Negative (Negative); Nitrite,Urine Negative (Negative); Protein,Urine 30 mg/dL (Neg-Trace); Specific Gravity,Urine > 1.030 (1.010-1.025); Urobilinogen,Urine Normal (Normal)
[2019-06-19 17:42] LABS: Bacteria,Urine None Seen per hpf (None-Few); Hyaline Casts,Urine None Seen per lpf (None-Few); Squamous Epithelial Cell,Urine Many per lpf (None-Few); WBC,Urine 0-3 per hpf (0-3)
[2019-06-20] MEDS ORDERED: *HR* Heparin 5,000 UNIT/ML VIAL SQ SCH (06:00)
[2019-06-20] MEDS: Cyanocobalamin (B-12) 1,000 MCG TABLET PO SCH (07:41)
[2019-06-20] MEDS: Budesonide/Formoterol 80/4.5 1 PUFF INH IH SCH (10:09)
[2019-06-20 12:13] VITALS: BP 134/63
[2019-06-20 12:22] LABS: Basophils % 0.6 %; Eosinophils % 1.2 %; Hematocrit 34.2 % (37.5-50.1); Immature Granulocytes % 0.6 % (0-4); Lymphocytes # 0.9 K/mcL (0.6-4.6); Lymphocytes % 25.3 %; Mean Corpuscular HGB Conc 32.2 g/dL (31.6-35.5); Mean Corpuscular Volume 90.2 fL (83.0-100.0); Mean Platelet Volume 11.4 fL (9.4-12.4); Monocytes # 1.4 K/mcL (0.0-1.3); Monocytes % 40.1 %; Neutrophils # 1.1 K/mcL (1.6-8.9); Platelet Count 126 K/mcL (140-400); Red Blood Count 3.79 M/mcL (4.19-5.50); Red Cell Distribution Width 16.6 % (11.5-14.5); Segmented Neutrophils % 32.2 %; White Blood Count 3.4 K/mcL (4.3-11.1)
[2019-06-20 12:35] LABS: BUN/Creatinine Ratio 24 (6-26); Blood Urea Nitrogen 13 mg/dL (8-23); Calcium 8.6 mg/dL (8.6-10.3); Carbon Dioxide 28 mEq/L (23-29); Chloride 103 mEq/L (98-107); Glucose 101 mg/dL (70-105); Magnesium 1.9 mg/dL (1.6-2.6); Osmolality,Calculated 286 (280-300); Potassium 3.5 mEq/L (3.5-5.1); Sodium 138 mEq/L (136-145); eGFR For African Americans > 60 (> 60); eGFR For Non-African Americans > 60 (> 60)
[2019-06-20 13:05] LABS: Platelet Estimate Normal (Normal)
== END 2019-06-20 13:52 | disposition home health service (06) | DRG 641 ==
LOC: 2NNU 17:55 → EMEROOARM 17:55 → 2NNU 06-19 00:42 → SUATTDRO 06-19 09:08
PROVIDERS: ADMIT Internal Medicine; ATTEND Internal Medicine